=== PATIENT | female | born 1940 | race Hispanic/Latino ===

== ENCOUNTER 2018-03-05 17:12 | Emergency (ER) | payer OTHER ==
[~2018-03-05 17:12] MED LIST: AMLO-127 PO; ATOR10 PO; LEVO50 PO; METO25TA6 PO
[2018-03-05 18:05] LABS: BASOPHILS % (AUTO) 0.4 % (0.0-5.0); EOSINOPHILS % (AUTO) 2.1 % (0.0-8.0); HEMATOCRIT 39.8 % (36-48); LYMPHOCYTES % (AUTO) 25.9 % (21.0-51.0); MEAN CORPUSCULAR HEMOGLOBIN 30.6 pg (27.0-33.0); MEAN CORPUSCULAR HGB CONC 33.6 g/dL (32.0-36.0); MONOCYTES % (AUTO) 11.1 % (3.0-13.0); NEUTROPHILS % (AUTO) 60.5 % (40.0-77.0); PLATELET COUNT (AUTO) 270 K/uL (130-400); RED BLOOD CELL COUNT(AUTO) 4.37 MIL/uL (4.00-5.50); RED CELL DISTRIBUTION WIDTH 17.4 % (11.0-15.5); WHITE BLOOD COUNT (AUTO) 6.9 K/uL (4.8-10.8)
[2018-03-05 18:19] LABS: CREATININE 0.9 mg/dL (0.5-1.5); POTASSIUM 3.8 mmol/L (3.5-5.1)
[2018-03-05 18:26] LABS: ALBUMIN 3.1 g/dL (3.5-5.0); BILIRUBIN,TOTAL 0.3 mg/dL (0.2-1.0); TOTAL PROTEIN, SERUM 7.2 g/dL (6.0-8.3)
[2018-03-05 18:34] LABS: B-TYPE NATRIURETIC PEPTIDE 31 pg/mL (0-100)
[2018-03-05] MEDS ORDERED: SODIUM CHLORIDE 0.9% 1000ML 1,000 ML IV ONE (18:52)
[2018-03-05] MEDS ORDERED: ACETAMINOPHEN 325 MG TAB ONE (18:53)
== END 2018-03-05 21:02 | disposition home or self-care (01) ==
LOC: EDH 17:12
DX: R07.89 Other chest pain (principal); J10.1 Influenza due to other identified influenza virus with other respiratory manifestations; R51 Headache; R53.1 Weakness; M79.1 Myalgia; E78.5 Hyperlipidemia, unspecified; I10 Essential (primary) hypertension; E07.9 Disorder of thyroid, unspecified; Z98.890 Other specified postprocedural states
CPT/HCPCS: 36415; 71045; 80053; 82550; 83880; 84484 ×2; 85025; 87804 ×2; 93005 ×2; 99285; J7030

== ENCOUNTER → 2018-03-10 | Outpatient (CLI) | payer OTHER | END | disposition home or self-care (01) | LOC: OIH 10:23 | PROVIDERS: ATTEND Family Medicine | DX: R51 Headache (principal); R90.82 White matter disease, unspecified | CPT/HCPCS: 70450 ==

== ENCOUNTER 2019-04-28 14:56 | Emergency (ER) | payer OTHER ==
[~2019-04-28 14:56] MED LIST changes: -AMLO-127 PO; +AMLO-96 PO
[2019-04-28 15:39] LABS: BASOPHILS % (AUTO) 0.7 % (0.0-5.0); EOSINOPHILS % (AUTO) 1.2 % (0.0-8.0); LYMPHOCYTES % (AUTO) 26.2 % (21.0-51.0); MEAN CORPUSCULAR HEMOGLOBIN 32.4 pg (27.0-33.0); MEAN CORPUSCULAR HGB CONC 33.9 g/dL (32.0-36.0); MEAN CORPUSCULAR VOLUME 95.5 fL (79-99); MONOCYTES % (AUTO) 9.2 % (3.0-13.0); NEUTROPHILS % (AUTO) 62.7 % (40.0-77.0); PLATELET COUNT (AUTO) 204 K/uL (130-400); RED CELL DISTRIBUTION WIDTH 14.1 % (11.0-15.5); WHITE BLOOD COUNT (AUTO) 5.8 K/uL (4.8-10.8)
[2019-04-28 16:01] LABS: CREATININE 0.9 mg/dL (0.5-1.5); POTASSIUM 3.4 mmol/L (3.5-5.1)
[2019-04-28 16:06] LABS: ALBUMIN 3.4 g/dL (3.5-5.0); BILIRUBIN,TOTAL 0.7 mg/dL (0.2-1.0); TOTAL PROTEIN, SERUM 7.1 g/dL (6.0-8.3)
[2019-04-28] MEDS ORDERED: IOHEXOL-350 75 ML VIAL IV ONE (18:09)
== END 2019-04-28 19:13 | disposition home or self-care (01) ==
LOC: EDH 14:56
DX: I10 Essential (primary) hypertension (principal); K44.9 Diaphragmatic hernia without obstruction or gangrene; E78.5 Hyperlipidemia, unspecified; E07.9 Disorder of thyroid, unspecified; Z90.710 Acquired absence of both cervix and uterus; Z96.649 Presence of unspecified artificial hip joint
CPT/HCPCS: 36415; 71045; 71275; 80053; 83880; 84484; 85025; 85378; 93005; 99285; Q9967

== ENCOUNTER → 2019-06-06 | Outpatient (CLI) | payer OTHER | END | disposition home or self-care (01) | LOC: SHCH 13:26 | PROVIDERS: ATTEND Internal Medicine Cardiovascular Disease | DX: I06.9 Rheumatic aortic valve disease, unspecified (principal); R06.02 Shortness of breath | CPT/HCPCS: 93306 ==

== ENCOUNTER → 2019-06-08 | Outpatient (CLI) | payer OTHER ==
[~2019-06-08] VITALS: Ht 157.5 cm; Wt 83.5 kg
[~2019-06-08] MED LIST changes: +REGADENOSON 0.4 MG/5 ML PF SYG IVP SCH
== END | disposition home or self-care (01) ==
LOC: SHCH 12:00
PROVIDERS: ATTEND Internal Medicine Cardiovascular Disease
DX: R06.02 Shortness of breath (principal); R01.1 Cardiac murmur, unspecified
CPT/HCPCS: 78452; 93017; 96374; A9500 ×2; J2785

== ENCOUNTER → 2020-02-04 | Outpatient (CLI) | payer OTHER ==
[~2020-02-04] MED LIST changes: -REGADENOSON 0.4 MG/5 ML PF SYG IVP SCH
== END | disposition home or self-care (01) ==
LOC: SHCH 10:31
PROVIDERS: ATTEND Internal Medicine Cardiovascular Disease
DX: K21.9 Gastro-esophageal reflux disease without esophagitis (principal)
CPT/HCPCS: 93970

== ENCOUNTER → 2020-12-05 | Outpatient (CLI) | payer OTHER | END | disposition home or self-care (01) | LOC: SHCH 14:33 | PROVIDERS: ATTEND Internal Medicine Cardiovascular Disease | DX: R01.1 Cardiac murmur, unspecified (principal) | CPT/HCPCS: 93306; 93356 ==

== ENCOUNTER 2021-05-14 15:23 | Observation (INO) | payer OTHER ==
[~2021-05-14] VITALS: Ht 160 cm; Wt 83.0 kg
[2021-05-14 15:24] VITALS: BP 145/86
[2021-05-14 15:58] LABS: BASOPHILS % (AUTO) 0.4 % (0.0-5.0); LYMPHOCYTES % (AUTO) 22.7 % (21.0-51.0); MEAN CORPUSCULAR HEMOGLOBIN 31.1 pg (27.0-33.0); MEAN CORPUSCULAR VOLUME 97.2 fL (79-99); MONOCYTES % (AUTO) 9.1 % (3.0-13.0); NEUTROPHILS % (AUTO) 66.5 % (40.0-77.0); PLATELET COUNT (AUTO) 212 K/uL (130-400); RED BLOOD CELL COUNT(AUTO) 4.63 MIL/uL (4.00-5.50); RED CELL DISTRIBUTION WIDTH 13.7 % (11.0-15.5)
[2021-05-14 16:14] LABS: CARBON DIOXIDE 27 mmol/L (21-32); CHLORIDE 106 mmol/L (101-111); CREATININE 1.1 mg/dL (0.5-1.5); GLOMERULAR FILTR. RATE CALC 51 mL/min (>60); GLUCOSE,RANDOM 110 mg/dL (70-105); SODIUM SERUM 144 mmol/L (136-145); UREA NITROGEN, BLOOD 21 mg/dL (7-18)
[2021-05-14 16:35] LABS: ALANINE AMINOTRANSFERASE 22 U/L (12-78); ALBUMIN 3.6 g/dL (3.5-5.0); ASPARTATE AMINOTRANSFERASE 15 U/L (10-37); BILIRUBIN,TOTAL 0.6 mg/dL (0.2-1.0); CREATINE KINASE, TOTAL 153 U/L (21-232); MYOGLOBIN 86 ng/mL (10-92); TOTAL PROTEIN, SERUM 7.5 g/dL (6.0-8.3); TROPONIN I < 0.04 ng/mL (0.00-0.06)
[2021-05-14 16:43] LABS: INR 1.06 (0.85-1.15); PROTHROMBIN TIME 11.5 SEC (9.6-11.6)
[2021-05-14 18:01] VITALS: BP 105/56
[2021-05-14] MEDS ORDERED: MAG/ALUM/SIMETH 30 ML UDCUP PO PRN (18:30)
[2021-05-14] MEDS ORDERED: ACETAMINOPHEN 325 MG TAB PO PRN ×2 (18:30)
[2021-05-14] MEDS ORDERED: GUAIFENESIN-DM 200/20 MG 10 ML PO PRN (18:30)
[2021-05-14] MEDS ORDERED: HYDRALAZINE 20MG/ML VIAL IV PRN (18:30)
[2021-05-14] MEDS ORDERED: LACTULOSE 20 GM/30 ML UDCUP PO PRN (18:30)
[2021-05-14] MEDS ORDERED: NITROGLYCERIN 0.4 MG SL TAB SL PRN (18:30)
[2021-05-14] MEDS ORDERED: HYDROCODONE/ACETAMINOPHEN 5/325 MG TAB PO PRN (18:30)
[2021-05-14] MEDS: NITROGLYCERIN 1GM OINT 1 INCH/1GM TD SCH (18:30)
[2021-05-14] MEDS ORDERED: ONDANSETRON 4MG INJ IV PRN (18:30)
[2021-05-14 19:17] VITALS: BP_SYST 113; BP_SYST 123; BP_DIAS 52; BP_DIAS 58
[2021-05-14 19:39] LABS: CREATINE KINASE, TOTAL 151 U/L (21-232); MYOGLOBIN 69 ng/mL (10-92); TROPONIN I < 0.04 ng/mL (0.00-0.06)
[2021-05-14 20:05] LABS: APPEARANCE,URINE Clear (CLEAR); BILIRUBIN,URINE Negative (NEGATIVE); COLOR,URINE Yellow (YELLOW); GLUCOSE, URINE (UA) Negative (NEGATIVE); KETONES,URINE 15 mg/dL (NEGATIVE); LEUKOCYTE ESTERASE ,URINE Moderate (NEGATIVE); NITRATE,URINE Positive (NEGATIVE); OCCULT BLOOD,URINE Small (NEGATIVE); PH,URINE 6.5 (5.0-8.0); PROTEIN,URINE Negative (NEGATIVE)
[2021-05-14] MEDS ORDERED: NITR0.4T50 SL (20:07)
[2021-05-14] MEDS ORDERED: ALEN70TA80 PO (20:07)
[2021-05-14] MEDS ORDERED: LEVO88CA4 PO (20:07)
[2021-05-14] MEDS ORDERED: ESCI5TAB16 PO (20:07)
[2021-05-14 20:29] LABS: BACTERIA,URINE Many /HPF (None Seen); MUCUS,URINE Few LPF (None Seen); SQUAMOUS EPITHELIAL CELL,UR Few /HPF (0-2)
[2021-05-14] MEDS ORDERED: FAMOTIDINE 20MG TAB PO SCH (21:00)
[2021-05-14 22:26] VITALS: BP 116/63
[2021-05-15] VITALS (9 sets, daily range): BP systolic 97–138; BP diastolic 46–76
[2021-05-15] MEDS ORDERED: 0.9%NACL 100ML 100 ML ONE (00:36)
[2021-05-15] MEDS ORDERED: CEFTRIAXONE 2GM VIAL ONE (00:36)
[2021-05-15] MEDS ORDERED: CEFTRIAXONE 2GM VIAL IVP SCH (01:00)
[2021-05-15] MEDS: NITROGLYCERIN 1GM OINT 1 INCH/1GM TD SCH (03:07)
[2021-05-15 03:34] LABS: CREATINE KINASE, TOTAL 147 U/L (21-232); MYOGLOBIN 61 ng/mL (10-92); TROPONIN I < 0.04 ng/mL (0.00-0.06)
[2021-05-15] MEDS ORDERED: LEVOTHYROXINE 88 MCG TABLET PO SCH (06:57)
[2021-05-15 07:12] LABS: BASOPHILS % (AUTO) 0.5 % (0.0-5.0); EOSINOPHILS % (AUTO) 1.5 % (0.0-8.0); HEMATOCRIT 43.6 % (36-48); LYMPHOCYTES % (AUTO) 22.1 % (21.0-51.0); MEAN CORPUSCULAR HEMOGLOBIN 31.2 pg (27.0-33.0); MEAN CORPUSCULAR HGB CONC 31.9 g/dL (32.0-36.0); MEAN CORPUSCULAR VOLUME 97.8 fL (79-99); MONOCYTES % (AUTO) 10.1 % (3.0-13.0); NEUTROPHILS % (AUTO) 65.5 % (40.0-77.0); PLATELET COUNT (AUTO) 171 K/uL (130-400); RED BLOOD CELL COUNT(AUTO) 4.46 MIL/uL (4.00-5.50); RED CELL DISTRIBUTION WIDTH 13.8 % (11.0-15.5); WHITE BLOOD COUNT (AUTO) 6.1 K/uL (4.8-10.8)
[2021-05-15 07:37] LABS: CREATININE 0.7 mg/dL (0.5-1.5); POTASSIUM 4.1 mmol/L (3.5-5.1); THYROID STIMULATING HORMONE 0.29 uIU/mL (0.36-3.74)
[2021-05-15 07:38] LABS: B-TYPE NATRIURETIC PEPTIDE 124 pg/mL (0-100)
[2021-05-15] MEDS ORDERED: ENOXAPARIN SODIUM 40 MG/0.4 ML SYRINGE SQ SCH (09:00)
[2021-05-15] MEDS ORDERED: AMLODIPINE 5 MG TAB PO SCH (09:00)
[2021-05-15] MEDS ORDERED: BENAZEPRIL HCL 10 MG TABLET PO SCH (09:00)
[2021-05-15 10:36] LABS: CREATINE KINASE, TOTAL 143 U/L (21-232); MYOGLOBIN 53 ng/mL (10-92); TROPONIN I < 0.04 ng/mL (0.00-0.06)
[2021-05-15] MEDS ORDERED: BENA40TA9 PO (13:59)
[2021-05-15] MEDS ORDERED: AMOX-426 PO (13:59)
[2021-05-15] MEDS ORDERED: CITALOPRAM 20 MG TABLET PO SCH (17:00)
[2021-05-15] MEDS ORDERED: METOPROLOL TARTRATE 25 MG TAB PO SCH (21:00)
[2021-05-15] MEDS ORDERED: ATORVASTATIN 10 MG TABLET PO SCH (21:00)
== END 2021-05-15 16:07 | disposition home or self-care (01) ==
LOC: EDH 15:23 → EDHIP 18:09
PROVIDERS: ADMIT Internal Medicine; ATTEND Internal Medicine
DX: I25.118 Atherosclerotic heart disease of native coronary artery with other forms of angina pectoris (principal); I10 Essential (primary) hypertension; I42.9 Cardiomyopathy, unspecified; N39.0 Urinary tract infection, site not specified; E78.00 Pure hypercholesterolemia, unspecified; E03.9 Hypothyroidism, unspecified; E66.9 Obesity, unspecified; E78.5 Hyperlipidemia, unspecified; F32.9 Major depressive disorder, single episode, unspecified; I63.9 Cerebral infarction, unspecified; I87.2 Venous insufficiency (chronic) (peripheral); M81.0 Age-related osteoporosis without current pathological fracture; M19.90 Unspecified osteoarthritis, unspecified site; R29.700 NIHSS score 0; Z79.890 Hormone replacement therapy; Z79.899 Other long term (current) drug therapy; Z90.710 Acquired absence of both cervix and uterus; Z96.652 Presence of left artificial knee joint; Z98.890 Other specified postprocedural states; Z68.32 Body mass index [BMI] 32.0-32.9, adult
CPT/HCPCS: 36415 ×2; 71045 ×2; 80048; 80053; 81001; 82550 ×4; 83874 ×4; 83880 ×2; 84443; 84484 ×4; 85025 ×2; 85610; 87077; 87088; 87186; 93005 ×4; 96372; 99285; G0378 ×22; J0696; J1650

== ENCOUNTER → 2022-03-16 | Outpatient (CLI) | payer OTHER ==
[~2022-03-16] MED LIST changes: +ALEN70TA80 PO; -AMLO-96 PO; +AMOX-426 PO; +BENA40TA92 PO; +ESCI5TAB16 PO; -LEVO50 PO; +LEVO88CA4 PO; -METO25TA6 PO; +NITR0.4T50 SL
[2022-03-16 12:38] LABS: BASOPHILS % (AUTO) 0.8 % (0.0-5.0); EOSINOPHILS % (AUTO) 1.6 % (0.0-8.0); HEMATOCRIT 48.3 % (36-48); LYMPHOCYTES % (AUTO) 30.9 % (21.0-51.0); MEAN CORPUSCULAR HEMOGLOBIN 33.3 pg (27.0-33.0); MEAN CORPUSCULAR HGB CONC 33.5 g/dL (32.0-36.0); MEAN CORPUSCULAR VOLUME 99.4 fL (79-99); MONOCYTES % (AUTO) 9.4 % (3.0-13.0); NEUTROPHILS % (AUTO) 57.1 % (40.0-77.0); PLATELET COUNT (AUTO) 183 K/uL (130-400); RED BLOOD CELL COUNT(AUTO) 4.86 MIL/uL (4.00-5.50); RED CELL DISTRIBUTION WIDTH 14.3 % (11.0-15.5)
[2022-03-16 13:13] LABS: ALBUMIN 3.6 g/dL (3.5-5.0); BILIRUBIN,TOTAL 0.6 mg/dL (0.2-1.0); CREATININE 1.1 mg/dL (0.5-1.5); POTASSIUM 4.2 mmol/L (3.5-5.1); THYROID STIMULATING HORMONE 1.06 uIU/mL (0.36-3.74); TOTAL PROTEIN, SERUM 7.2 g/dL (6.0-8.3)
== END | disposition home or self-care (01) ==
LOC: SHCH 08:51
PROVIDERS: ATTEND Internal Medicine Cardiovascular Disease
DX: I48.0 Paroxysmal atrial fibrillation (principal)
CPT/HCPCS: 36415; 80053; 83735; 84443; 85025

== ENCOUNTER → 2023-05-25 | Outpatient (CLI) | payer OTHER | END | disposition home or self-care (01) | LOC: RESP 10:32 | PROVIDERS: ATTEND Internal Medicine Cardiovascular Disease | DX: R06.02 Shortness of breath (principal); R06.09 Other forms of dyspnea | CPT/HCPCS: 94060; 94727; 94729 ==

== ENCOUNTER → 2024-02-01 | Outpatient (CLI) | payer OTHER | END | disposition home or self-care (01) | LOC: SHCH 08:52 | PROVIDERS: ATTEND Internal Medicine Cardiovascular Disease | DX: I08.2 Rheumatic disorders of both aortic and tricuspid valves (principal) | CPT/HCPCS: 93306 ==

== ENCOUNTER 2024-05-03 06:00 | Day surgery (SDC) | payer OTHER ==
[2024-04-27 10:00] VITALS: BP 127/77; PULSE 61; RESP 17
[2024-04-27 10:13] LABS: BASOPHILS # (AUTO) 0.04 K/uL (0.00-0.20); BASOPHILS % (AUTO) 0.8 % (0.0-5.0); EOSINOPHILS # (AUTO) 0.08 K/uL (0.00-0.70); EOSINOPHILS % (AUTO) 1.5 % (0.0-8.0); HEMATOCRIT 45.4 % (36-48); IMMATURE GRANULOCYTE ABSOLUTE 0.02 K/uL (0-1); LYMPHOCYTES # (AUTO) 1.1 K/uL (1.0-4.8); LYMPHOCYTES % (AUTO) 21.9 % (21.0-51.0); MEAN CORPUSCULAR HEMOGLOBIN 31.7 pg (27.0-33.0); MEAN CORPUSCULAR HGB CONC 31.9 g/dL (32.0-36.0); MEAN CORPUSCULAR VOLUME 99.3 fL (79-99); MONOCYTES # (AUTO) 0.6 K/uL (0.1-1.0); MONOCYTES % (AUTO) 10.6 % (3.0-13.0); NEUTROPHILS # (AUTO) 3.4 K/uL (1.8-7.7); NEUTROPHILS % (AUTO) 64.8 % (40.0-77.0); PLATELET COUNT (AUTO) 223 K/uL (130-400); RED BLOOD CELL COUNT(AUTO) 4.57 MIL/uL (4.00-5.50); RED CELL DISTRIBUTION WIDTH 14.6 % (11.0-15.5); WHITE BLOOD COUNT (AUTO) 5.2 K/uL (4.8-10.8)
[2024-04-27 10:20] LABS: CREATININE 1.1 mg/dL (0.5-1.0)
[2024-04-27 10:24] LABS: INR 1.06 (0.85-1.15); PROTHROMBIN TIME 11.4 SEC (9.6-11.6)
[2024-04-27 10:25] LABS: PARTIAL THROMBOPLASTIN TIME 28.1 SEC (26.3-35.5)
[2024-05-03] VITALS (8 sets, daily range): BP systolic 102–139; BP diastolic 51–74; PULSE 52–114; RESP 14–16
[~2024-05-03] VITALS: Ht 157.5 cm; Wt 77.5 kg
[~2024-05-03 06:00] MED LIST changes: +AEC81 PO; +AMIO100T4 PO; -AMOX-426 PO; +APIX5TAB PO; +BENA-8 PO; -BENA40TA92 PO; +DILT90CA PO; -ESCI5TAB16 PO; -NITR0.4T50 SL
[2024-05-03] MEDS: 0.9%NACL 1000ML 1,000 ML IV ONE (06:58)
[2024-05-03] MEDS ORDERED: HEPARIN 10,000 UNIT/10ML (1,000 UNIT/ML) VIAL ONE (07:45)
[2024-05-03] MEDS ORDERED: MIDAZOLAM HCL 1 MG/ML 2ML VIAL ONE ×3 (07:45→08:59)
[2024-05-03] MEDS ORDERED: MEPERIDINE-PF 25 MG/ML SYG ONE ×3 (07:45→08:59)
[2024-05-03] MEDS ORDERED: LIDOCAINE HCL 400MG/20ML VIAL ONE (07:46)
== END 2024-05-03 12:45 | disposition home or self-care (01) ==
LOC: DAH 06:00
PROVIDERS: ATTEND Internal Medicine Cardiovascular Disease
DX: I48.3 Typical atrial flutter (principal); I10 Essential (primary) hypertension; I48.0 Paroxysmal atrial fibrillation; I35.0 Nonrheumatic aortic (valve) stenosis; R55 Syncope and collapse; E78.5 Hyperlipidemia, unspecified; E03.9 Hypothyroidism, unspecified; E66.9 Obesity, unspecified; M81.0 Age-related osteoporosis without current pathological fracture; M19.90 Unspecified osteoarthritis, unspecified site; F32.A Depression, unspecified; Z68.31 Body mass index [BMI] 31.0-31.9, adult; Z96.652 Presence of left artificial knee joint; Z79.82 Long term (current) use of aspirin; Z90.710 Acquired absence of both cervix and uterus; Z79.01 Long term (current) use of anticoagulants; Z79.899 Other long term (current) drug therapy
CPT/HCPCS: 80048; 85025; 85610; 85730; 36415; 93005; 93653; C1894 ×2; C1732 ×2; A4649 ×2; J3490; J7030; J1644 ×2; J2250 ×3; J2175 ×3; A4215; A4222; A4221; A4663; A4216; A4606; A4223 ×3; 99156; 99157

== ENCOUNTER 2024-06-04 05:55 | Observation (INO) | payer OTHER ==
[2024-06-01 09:50] LABS: BASOPHILS # (AUTO) 0.03 K/uL (0.00-0.20); BASOPHILS % (AUTO) 0.6 % (0.0-5.0); EOSINOPHILS # (AUTO) 0.06 K/uL (0.00-0.70); EOSINOPHILS % (AUTO) 1.2 % (0.0-8.0); HEMATOCRIT 45.7 % (36-48); IMMATURE GRANULOCYTE ABSOLUTE 0.03 K/uL (0-1); LYMPHOCYTES # (AUTO) 1.2 K/uL (1.0-4.8); LYMPHOCYTES % (AUTO) 24.3 % (21.0-51.0); MEAN CORPUSCULAR HEMOGLOBIN 32.8 pg (27.0-33.0); MEAN CORPUSCULAR HGB CONC 32.8 g/dL (32.0-36.0); MEAN CORPUSCULAR VOLUME 99.8 fL (79-99); MONOCYTES # (AUTO) 0.5 K/uL (0.1-1.0); MONOCYTES % (AUTO) 9.4 % (3.0-13.0); NEUTROPHILS # (AUTO) 3.1 K/uL (1.8-7.7); NEUTROPHILS % (AUTO) 63.9 % (40.0-77.0); PLATELET COUNT (AUTO) 180 K/uL (130-400); RED BLOOD CELL COUNT(AUTO) 4.58 MIL/uL (4.00-5.50); RED CELL DISTRIBUTION WIDTH 13.8 % (11.0-15.5); WHITE BLOOD COUNT (AUTO) 4.9 K/uL (4.8-10.8)
[2024-06-01 10:00] LABS: CREATININE 1.2 mg/dL (0.5-1.0); POTASSIUM 4.2 mmol/L (3.5-5.1)
[2024-06-01 10:02] LABS: INR 1.06 (0.85-1.15); PROTHROMBIN TIME 11.4 SEC (9.6-11.6)
[2024-06-01 10:03] LABS: PARTIAL THROMBOPLASTIN TIME 30.2 SEC (26.3-35.5)
[2024-06-01 10:11] VITALS: BP 175/86; PULSE 62; RESP 18
[~2024-06-04] VITALS: Ht 154.9 cm; Wt 78.0 kg
[2024-06-04] VITALS (33 sets, daily range): BP systolic 89–137; BP diastolic 42–75; PULSE 20–83; RESP 11–24; O2SAT 96–98
[~2024-06-04 05:55] MED LIST changes: -AMIO100T4 PO; +AMIO200T68 PO; -BENA-8 PO; +BENA40TA92 PO
[2024-06-04] MEDS: 0.9%NACL 1000ML 1,000 ML IV ONE (06:33)
[2024-06-04] MEDS ORDERED: LIDOCAINE HCL 400MG/20ML VIAL ONE (07:13)
[2024-06-04] MEDS ORDERED: IOHEXOL 350 MG/ML 100ML INFUS..BTL IV ONE (07:13)
[2024-06-04] MEDS ORDERED: HEParin-NS 1,000 UNIT/500 ML 1,000 ML IV ONE (07:14)
[2024-06-04] MEDS ORDERED: NITROGLYCERIN 50MG VIAL ONE (07:14)
[2024-06-04] MEDS ORDERED: MIDAZOLAM HCL 1 MG/ML 2ML VIAL ONE (07:33)
[2024-06-04] MEDS ORDERED: FENTanyl CITRate PF 50 MCG/1 ML 2ML VIAL ONE (07:33)
[2024-06-04] MEDS ORDERED: BIVALIRUDIN 250 MG/VIAL IV ONE (07:35)
[2024-06-04] MEDS ORDERED: HEParin 10,000 UNIT/10ML (1,000 UNIT/ML) VIAL ONE (07:35)
[2024-06-04] MEDS ORDERED: CLOPIDOGREL 300MG TAB ONE (09:05)
[2024-06-04] MEDS ORDERED: ASPIRIN 81MG CHEW TAB ONE (09:05)
[2024-06-04] MEDS ORDERED: GLUCAGON 1MG KIT 1 MG ML IM PRN (09:30)
[2024-06-04] MEDS ORDERED: DEXTROSE 50%-WATER 50 ML DISP.SYRIN IV PRN (09:30)
[2024-06-04] MEDS ORDERED: METOPROLOL TARTRATE 1 MG/ML 5ML VIAL IV PRN (09:30)
[2024-06-04] MEDS ORDERED: NITROGLYCERIN 0.4 MG SL TAB SL PRN (09:30)
[2024-06-04] MEDS ORDERED: acetaMINOPHEN 650 MG SUPPOSITORY RC PRN (17:00)
[2024-06-04] MEDS ORDERED: doCUSate SODIUM 100 MG CAP PO PRN (17:00)
[2024-06-04] MEDS ORDERED: LABETALOL 20MG SYG IV PRN (17:00)
[2024-06-04] MEDS ORDERED: cloNIDine HCL 0.1 MG TABLET PO PRN (17:00)
[2024-06-04] MEDS ORDERED: LACTULOSE 20 GM/30 ML UDCUP PO PRN (17:00)
[2024-06-04] MEDS ORDERED: hydrALAZine 20MG/ML VIAL IV PRN (17:00)
[2024-06-04] MEDS: ONDANSETRON 4MG INJ IVP PRN (17:36)
[2024-06-04] MEDS: acetaMINOPHEN 325 MG TAB PO PRN (17:36)
[2024-06-04] MEDS: ATORVASTATIN 10 MG TABLET PO SCH (20:25)
[2024-06-04] MEDS: DILTIAZEM 90 MG PO SCH (20:25)
[2024-06-04] MEDS: APIXaban 5 MG TABLET PO SCH (20:25)
[2024-06-04] MEDS: 0.9%NACL 1000ML 1,000 ML IV SCH (20:26)
[2024-06-05 03:49] LABS: BASOPHILS # (AUTO) 0.02 K/uL (0.00-0.20); BASOPHILS % (AUTO) 0.3 % (0.0-5.0); EOSINOPHILS # (AUTO) 0.02 K/uL (0.00-0.70); EOSINOPHILS % (AUTO) 0.3 % (0.0-8.0); HEMATOCRIT 35.6 % (36-48); IMMATURE GRANULOCYTE ABSOLUTE 0.03 K/uL (0-1); LYMPHOCYTES % (AUTO) 12.3 % (21.0-51.0); MEAN CORPUSCULAR HEMOGLOBIN 32.3 pg (27.0-33.0); MEAN CORPUSCULAR HGB CONC 32.9 g/dL (32.0-36.0); MEAN CORPUSCULAR VOLUME 98.3 fL (79-99); MONOCYTES # (AUTO) 0.7 K/uL (0.1-1.0); MONOCYTES % (AUTO) 8.7 % (3.0-13.0); PLATELET COUNT (AUTO) 161 K/uL (130-400); RED BLOOD CELL COUNT(AUTO) 3.62 MIL/uL (4.00-5.50); WHITE BLOOD COUNT (AUTO) 7.7 K/uL (4.8-10.8)
[2024-06-05 04:04] LABS: MAGNESIUM 1.9 mg/dL (1.80-2.40); PHOSPHORUS 4.7 mg/dL (2.5-4.9)
[2024-06-05 04:17] VITALS: BP 103/68; PULSE 58; RESP 18
[2024-06-05] MEDS: LEVOTHYROXINE 88 MCG TABLET PO SCH (05:38)
[2024-06-05 08:00] VITALS: O2SAT 97
[2024-06-05 08:56] VITALS: BP 112/64; PULSE 66; RESP 18
[2024-06-05] MEDS: AMIOdarone 200 MG TABLET PO SCH (09:13)
[2024-06-05] MEDS: beNAZEPril HCL 10 MG TABLET PO SCH (09:13)
[2024-06-05] MEDS: 0.9%NACL 1000ML 1,000 ML IV SCH (09:13)
[2024-06-05] MEDS: CLOPIDOGREL 75MG TAB PO SCH (09:13)
[2024-06-05] MEDS: PANTOPRAZOLE 40 MG TAB DR PO SCH (09:13)
[2024-06-05] MEDS: ASPIRIN 81 MG EC TAB PO SCH (09:13)
[2024-06-05] MEDS: ATROPINE 1MG SYG IVP ONE (09:14)
[2024-06-05 12:33] VITALS: BP 106/62; PULSE 58; RESP 18
[2024-06-05] MEDS ORDERED: CLOP-31 PO (18:07)
[2024-06-05 19:33] VITALS: BP 124/37; PULSE 62; RESP 18
[2024-06-05] MEDS ORDERED: ATORVASTATIN 20 MG TABLET PO SCH (21:00)
[2024-06-11] MEDS ORDERED: ALENDRONATE SODIUM 35 MG TAB PO SCH (06:30)
== END 2024-06-05 19:55 | disposition home or self-care (01) ==
LOC: DAH 05:55 → DAHIP 05:56 → 2DH 15:30
PROVIDERS: ADMIT Internal Medicine; ATTEND Internal Medicine
DX: I25.119 Atherosclerotic heart disease of native coronary artery with unspecified angina pectoris (principal); I35.0 Nonrheumatic aortic (valve) stenosis; E78.5 Hyperlipidemia, unspecified; E03.9 Hypothyroidism, unspecified; F32.A Depression, unspecified; I48.0 Paroxysmal atrial fibrillation; I95.9 Hypotension, unspecified; I48.3 Typical atrial flutter; I27.20 Pulmonary hypertension, unspecified; I10 Essential (primary) hypertension; E66.9 Obesity, unspecified; M81.0 Age-related osteoporosis without current pathological fracture; M19.90 Unspecified osteoarthritis, unspecified site; Z68.32 Body mass index [BMI] 32.0-32.9, adult; Z79.02 Long term (current) use of antithrombotics/antiplatelets; Z98.61 Coronary angioplasty status; Z90.710 Acquired absence of both cervix and uterus
CPT/HCPCS: 80048 ×2; 85025 ×2; 85610; 85730; 36415 ×2; 71045 ×2; 93005; 93460; 96374; 96361; 83735; 84100; C1769 ×2; C1887 ×2; C1894 ×3; C1725 ×2; C1874 ×2; Q9965 ×2; G0378 ×27; J3010; J3490 ×2; J7030; J1644 ×2; J2250; J2405; J0583; Q9967; A4615; A4215; A4223 ×3; A6402; A4657; A4222; A4221; A4663; A4216; A6258; A4606; C9600; 96360; 99156; 99157; J0461

== ENCOUNTER 2024-12-07 08:22 | Day surgery (SDC) | payer OTHER ==
[2024-12-05 12:16] LABS: BASOPHILS # (AUTO) 0.03 K/uL (0.00-0.20); BASOPHILS % (AUTO) 0.7 % (0.0-5.0); EOSINOPHILS # (AUTO) 0.05 K/uL (0.00-0.70); EOSINOPHILS % (AUTO) 1.2 % (0.0-8.0); HEMATOCRIT 43.9 % (36-48); IMMATURE GRANULOCYTE ABSOLUTE 0.01 K/uL (0-1); LYMPHOCYTES # (AUTO) 1.2 K/uL (1.0-4.8); LYMPHOCYTES % (AUTO) 27.6 % (21.0-51.0); MEAN CORPUSCULAR HEMOGLOBIN 32.2 pg (27.0-33.0); MEAN CORPUSCULAR HGB CONC 31.9 g/dL (32.0-36.0); MEAN CORPUSCULAR VOLUME 100.9 fL (79-99); MONOCYTES # (AUTO) 0.4 K/uL (0.1-1.0); MONOCYTES % (AUTO) 9.5 % (3.0-13.0); NEUTROPHILS # (AUTO) 2.6 K/uL (1.8-7.7); NEUTROPHILS % (AUTO) 60.8 % (40.0-77.0); PLATELET COUNT (AUTO) 195 K/uL (130-400); RED BLOOD CELL COUNT(AUTO) 4.35 MIL/uL (4.00-5.50); RED CELL DISTRIBUTION WIDTH 14.7 % (11.0-15.5); WHITE BLOOD COUNT (AUTO) 4.2 K/uL (4.8-10.8)
[2024-12-05 12:18] VITALS: BP 132/68; PULSE 64; RESP 13; TEMP 97.4
[2024-12-05 12:27] LABS: POTASSIUM 3.9 mmol/L (3.5-5.1)
--- NOTE | 2024-12-05 12:45 | EKG ---
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
[~2024-12-07] VITALS: Ht 165.1 cm; Wt 76.4 kg
[~2024-12-07 08:22] MED LIST changes: -AEC81 PO; -AMIO200T68 PO; +CLOP75TA32 PO; -DILT90CA PO; +ISOS30TA92 PO
[2024-12-07 08:24] VITALS: BP 190/98; PULSE 75; RESP 16; TEMP 97.4
[2024-12-07 08:40] VITALS: BP 117/73
[2024-12-07] MEDS: 0.9%NACL 1000ML 1,000 ML IV SCH (08:55)
[2024-12-07] MEDS ORDERED: HEParin-NS 1,000 UNIT/500 ML 500 ML IV ONE (09:43)
[2024-12-07] MEDS ORDERED: LIDOCAINE HCL 400MG/20ML VIAL ONE (09:43)
[2024-12-07] MEDS ORDERED: MEPERIDINE-PF 50 MG/ML SYG ONE (10:09)
[2024-12-07] MEDS ORDERED: MIDAZOLAM HCL 1 MG/ML 2ML VIAL ONE (10:10)
[2024-12-07 11:00] VITALS: BP 116/74; PULSE 61; RESP 10; TEMP 97.8
[2024-12-07] MEDS ORDERED: acetaMINOPHEN 500 MG TABLET PO PRN (11:00)
[2024-12-07] MEDS ORDERED: acetaMINOPHEN WITH coDEINE 1 TAB TAB PO PRN ×2 (11:00)
--- NOTE | 2024-12-07 11:00 | NUR ---
DRESSING DRESSING TO LEFT MID CHEST. DRY AND INTACT NO REDNESS OR SWELLING.
[2024-12-07 11:15] VITALS: BP 134/79; PULSE 62; RESP 13
--- NOTE | 2024-12-07 11:15 | NUR ---
DRESSING DRESSING TO LEFT MID CHEST. DRESSING DRY AND INTACT NO REDNESS, OR SWELLING NOTED. NO ACTIVE BLEEDING.
[2024-12-07 11:30] VITALS: BP 140/80; PULSE 64; RESP 12; TEMP 97.8
--- NOTE | 2024-12-07 11:30 | NUR ---
DRESSING DRESSING TO LEFT MID CHEST. DRESSING DRY AND INTACT. NO REDNESS OR SWELLING. NO ACTIVE BLEEDING NOTED.
== END 2024-12-07 11:38 | disposition home or self-care (01) ==
LOC: DAH 08:22
PROVIDERS: ATTEND Internal Medicine Cardiovascular Disease
DX: R55 Syncope and collapse (principal); I48.0 Paroxysmal atrial fibrillation; R00.1 Bradycardia, unspecified; I35.0 Nonrheumatic aortic (valve) stenosis; I25.10 Atherosclerotic heart disease of native coronary artery without angina pectoris; I10 Essential (primary) hypertension; E78.5 Hyperlipidemia, unspecified; E03.9 Hypothyroidism, unspecified; E66.9 Obesity, unspecified; M19.90 Unspecified osteoarthritis, unspecified site; F32.A Depression, unspecified; Z85.118 Personal history of other malignant neoplasm of bronchus and lung; Z96.652 Presence of left artificial knee joint; Z90.710 Acquired absence of both cervix and uterus; Z79.899 Other long term (current) drug therapy
CPT/HCPCS: 80048; 85025; 36415; 93005; 33285; A4649; C1764; J3490; J7030; J2250; J2175; J1644; A4215; A4222; A4221; A4663; A4216; A4606; A4223 ×3

== ENCOUNTER → 2025-07-19 | Emergency (ER) | payer OTHER ==
[~2025-07-19] VITALS: Ht 162.6 cm; Wt 66.2 kg
[~2025-07-19] MED LIST changes: -LEVO88CA4 PO; +LEVO88CA5 PO
--- NOTE | 2025-07-19 19:23 | NUR ---
PT CARE ASSUMED AT THIS TIME
--- NOTE | 2025-07-19 19:34 | ERN ---
General Chief Complaint: Chest Pain Stated Complaint: CHEST TIGHTNESS Time Seen by MD: 19:18 History of Present Illness Initial Comments Patient comes in with chest tightness and chest pain. She describes it as the pain you get when you are trying to swallow something but it gets stuck in your throat or esophagus. She points to her xiphoid process as the area of the pain. She comes in because she is concerned that she is having a problem with her heart. Below is a summary of her last admission here when she had some stents placed in her LAD. Lsfpdjgk-sb-pgrreb aortic stenosis Acute Angina CAD s/p Angioplasty and stent placement to mid distal left anterior descending artery with placement of a 2.75 mm x 30 mm joseluis Kenton stent deployed to 2.7 by mm and angioplasty and stent placement to proximal mid LAD with placement of a 3 mm x 18 mm joseluis Kenton stent deployed to 3.10 mm 06/04/[address] Chester Lackey Hypertension Left ventricular ejection fraction 60 65% per echocardiogram 02/01/24 Pulmonary hypertension RVSP 35.4 mmHg per echocardiogram 02/01/2024 Eead-tg-eppejdse concentric left ventricle hypertrophy, Highest mean aortic valve gradient is 31mmHg. Per echocardiogram 02/01/2024 Peak aortic valve gradient is 53mmHg. Per echocardiogram 02/01/2024 Calculated MICAELA by the continuity equation is 0.8cm2. is severe valvular aortic stenosis. 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 Rosenthal Obesity class one BMI 32.5 HPI: This is an 84-year-old female coming in for elective left heart catheterization with TAVR protocol by Dr. Lackey with past medical history significant for moderate to severe aortic stenosis angina CAD hypertension dyslipidemia AFib on chronic Eliquis obesity hypothyroidism osteoporosis osteoarthritis depression, we will be admitted overnight for observation. At time of visit patient denies any chest pain or shortness of breath. Patient denies any nausea vomiting or abdominal pain. Patient is currently on room air appears to be tolerating well. Patient to be admitted on PCCU, we will resume patient's home medications. Patient to have gentle IV hydration. Spoke with Jerzy HERNANDEZ for Dr. Lackey, in regards to patient's antiplatelet therapy medication voiced patient should be on [id number] mg daily, Eliquis5 mg b.i.d., Mjsmrr22 mg daily, for 30 days then asp irin will be discontinued and patient will continue on Plavix and Eliquis. We will continue to monitor via telemetry. We will continue to follow recommendations from Cardiology. Plan summary Admit to PCCU Vital signs per protocol Continue telemetry Continue follow recommendations of Cardiology Spoke with Jerzy HERNANDEZ for Dr. Lackey, in regards to patient's antiplatelet therapy medication voiced patient should be on rfmzagg66 mg daily, Eliquis5 mg b.i.d., Wtchpr97 mg daily, for 30 days then aspirin will be discontinued and patient will continue on Plavix and Eliquis. Continue amiodarone 100 mg q.a.m. Continue benazepril 20 mg q.a.m. Continue Cardizem 90 mg b.i.d. Continue atorvastatin 20 mg q.h.s. Continue Altkspbfq65 mcg daily Timing/Duration: 4-6 hours Allergies: Coded Allergies: No Known Drug Allergies (Unverified Allergy, Unknown, 09/25/17) Home Meds Reported Medications Alendronate Sodium (Alendronate Sodium) 70 Mg Tablet, 70 MG PO QWEEK, TAB 12/05/24 Clopidogrel Bisulfate (Clopidogrel) 75 Mg Tablet, 75 MG PO DAILY, TAB 12/05/24 Isosorbide Mononitrate (Isosorbide Mononitrate ER) 30 Mg Tab.er.24h, 30 MG PO DAILY, TAB 12/05/24 Benazepril HCl (Benazepril HCl) 40 Mg Tablet, 40 MG PO AM, TAB 06/01/24 Apixaban (Eliquis) 5 Mg Tablet, 5 MG PO BID, TAB RESUME ELIQUIS ON TUESDAY PM 04/27/24 Levothyroxine Sodium (Levothyroxine) 88 Mcg Capsule, 88 MCG PO DAILY, CAP 05/14/21 Atorvastatin Calcium (LIPITOR) 20 Mg Tab, 20 MG PO HS, TAB 09/25/17 Past Medical History Past Medical History: A-Fib, CAD, High Cholesterol, Hypertension Medical History Other: THYROID Past Surgical History: Other Surgical History Other: BACK, KNEE, Cardiac STENTS LAD Social History Social History: Negative, Lives with family Constitutional: (-) chills, (-) diaphoresis, (-) fever, (-) malaise, (-) weakness, (-) other documentation EENTM: (-) eye pain, (-) blurred vision, (-) tearing, (-) double vision, (-) ear pain, (-) ear discharge, (-) nose pain, (-) nose congestion, (-) throat pain, (-) Throat swelling, (-) mouth pain, (-) tooth pain, (-) mouth swelling, (-) other documentation Respiratory: (-) cough, (-) orthopnea, (-) short of breath, (-) stridor, (-) wheezing, (-) other documentation Cardiovascular: (+) chest pain Gastrointestinal/Abdominal: (+) nausea Genitourinary: (-) vaginal discharge, (-) vaginal bleeding, (-) dysuria, (-) frequency, (-) hematuria, (-) pain, (-) other documentation Musculoskeletal: (-) Neck pain, (-) back pain, (-) Flank Pain, (-) joint pain, (-) joint swelling, (-) muscle pain, (-) muscle stiffness, (-) gout, (-) other documentation Skin: (-) laceration, (-) contusion, (-) abrasion, (-) abscess, (-) rash, (-) change in color, (-) change in hair, (-) change in nails, (-) diaphoresis, (-) dryness, (-) other documentation Physical Exam General Appearance: (+) no apparent distress Orientation: (+) alert, (+) oriented x 3 Head/Face Trauma: No Eye: bilateral eye normal inspection, bilateral eye PERRL, bilateral eye EOMI Ear, Nose, Throat: (+) hearing grossly normal, (+) normal ENT inspection, (+) moist mucous membraine Neck: (+) normal inspection, (+) supple, (+) full range of motion, (+) no JVD Respiratory: (+) chest non-tender, (+) lungs clear, (+) well ventilated Heart: (+) regular, (+) no gallop, (+) systolic murmur Vascular: (+) no edema, (+) normal peripheral pulse Gastrointestinal: (+) soft, (+) non-tender, (+) bowel sound present Neurologic/Psychiatric: (+) normal speech, (+) no motor defecits Results Laboratory and Microbiology Lab and Micro Result Laboratory Tests Test 07/19/25 19:34 White Blood Count 4.9 K/uL (4.8-10.8) Red Blood Count 4.41 MIL/uL (4.00-5.50) Hemoglobin 14.1 g/dL (12.0-16.0) Hematocrit 43.0 % (36-48) Mean Corpuscular Volume 97.5 fL (79-99) Mean Corpuscular Hemoglobin 32.0 pg (27.0-33.0) Mean Corpuscular Hemoglobin Concent 32.8 g/dL (32.0-36.0) Red Cell Distribution Width 13.1 % (11.0-15.5) Platelet Count 219 K/uL (130-400) Mean Platelet Volume 10.3 fL (7.5-10.5) Immature Granulocyte % (Auto) 0.2 % (0-1) Neutrophils (%) (Auto) 66.2 % (40.0-77.0) Lymphocytes (%) (Auto) 19.2 % (21.0-51.0) L Monocytes (%) (Auto) 12.8 % (3.0-13.0) Eosinophils (%) (Auto) 1.2 % (0.0-8.0) Basophils (%) (Auto) 0.4 % (0.0-5.0) Neutrophils # (Auto) 3.3 K/uL (1.8-7.7) Lymphocytes # (Auto) 1.0 K/uL (1.0-4.8) Monocytes # (Auto) 0.6 K/uL (0.1-1.0) Eosinophils # (Auto) 0.06 K/uL (0.00-0.70) Basophils # (Auto) 0.02 K/uL (0.00-0.20) Absolute Immature Granulocyte (auto 0.01 K/uL (0-1) Nucleated Red Blood Cells 0.0 % (0.0-0.19) Sodium Level 143 mmol/L (136-145) Potassium Level 4.0 mmol/L (3.5-5.1) Chloride Level 107 mmol/L (101-111) Carbon Dioxide Level 26 mmol/L (21-32) Blood Urea Nitrogen 19 mg/dL (7-18) H Creatinine 0.9 mg/dL (0.5-1.0) Glomerular Filtration Rate Calc 62 mL/min (>90) Random Glucose 185 mg/dL (70-105) H Total Calcium 8.4 mg/dL (8.5-10.1) L Total Bilirubin 0.5 mg/dL (0.2-1.0) Aspartate Amino Transf (AST/SGOT) 17 U/L (10-37) Alanine Aminotransferase (ALT/SGPT) 7 U/L (12-78) L Alkaline Phosphatase 68 U/L (50-136) Troponin I High Sensitivity 7 ng/L (4-50) B-Type Natriuretic Peptide 77 pg/mL (0-100) Total Protein 6.1 g/dL (6.0-8.3) Albumin 2.8 g/dL (3.5-5.0) L EKG/XRAY/US/CT/MRI EKG: (+) NSR (atrial premature complex), (+) ST elevation (non-specific from LVH, Left [place] enlargement) MDM MDM: Differential diagnosis: Esophageal spasm, dysmotility of the esophagus, acute MO, GERD, pneumonia Rationale: Tests considered and ordered secondary to shared decision making include: Previous outside records reviewed: Old ER visits. Risk of complication and/or morbidity or mortality of patient management: None Medications-Per medication reconciliation Need for hospitalization: Patient does meet criteria for hospitalization. Need for emergency major/minor surgery: No There are no social concerns with this patient. Prescription drug management Prescriptions will include symptomatic care Patient's prior external medical records from other ER visits were reviewed by me as indicated. Prior testing and results from previous visits were reviewed. Prior tests were taken into account with medical decision making and resource utilization, independent historian/historians were used to obtain complete [facility] history. I independently interpreted the test that were performed, results were reviewed by me and considered findings on radiology if ordered. Patient's CBC is normal CBC is normal. Patient's chemistry panel is also normal except for a high glucose to 185. Her albumin is 2.8 her calcium is 8.4. Her BNP and her troponin are normal. Patient's symptoms were consistent with an esophageal problem and I put that on my differential. Her chest x-ray shows a large hiatal hernia. I believe her symptoms are from her hiatal hernia and not from any cardiac source and she can be discharged from the hospital. ED Course Orders Procedure Category Date Status Time 12 Lead Ekg Tracing- EKG 07/19/25 Logged Technical 19:23 B-Type Natriuretic LAB 07/19/25 Complete Peptide 19:25 Comprehensive LAB 07/19/25 Complete Metabolic Panel 19:25 Cbc With Differential LAB 07/19/25 Complete 19:25 Troponin I High LAB 07/19/25 Complete Sensitivity 19:25 Chest 1vw RAD 07/19/25 Resulted 19:25 Vital Signs Date Time Temp Pulse Resp B/P (MAP) Pulse Ox O2 Delivery O2 Flow Rate FiO2 07/19/25 19:36 98.4 83 16 120/73 96 Room Air* 0 21 07/19/25 19:17 98.4 85 20 111/71 95 Room Air 0 DX & DISP Disposition: Discharge Departure Impression: Primary Impression: Hiatal hernia Condition: Stable Additional Instructions: Your symptoms describe difficulty swallowing with the food feeling like it is getting stuck in the lower part of your esophagus. The chest x-ray showed a hiatal hernia which is at a portion of your stomach inside your chest. This is not a surgical emergency but you should bring it to the attention of your primary care physician. We tested your cardiac enzymes and EKG and they were all normal. Your symptoms are coming from your esophagus and not your heart. To help I recommend you chew food thoroughly and take only small bites of food when you eat. Sometimes a hiatal hernia can cause heartburn. This can be treated with Pepcid or other antacid medications. Again please discuss this with your primary care physician. Referrals: YONG HAMMOND MD (PCP) BRUNO HUDDLESTON MD Jul 19, 2025 19:34
[2025-07-19 19:36] VITALS: BP 120/73; PULSE 83; RESP 16; TEMP 98.4; O2SAT 96
[2025-07-19 19:51] LABS: IMMATURE GRANULOCYTE ABSOLUTE 0.01 K/uL (0-1); NUCLEATED RED BLOOD CELLS 0.0 % (0.0-0.19); PLATELET COUNT (AUTO) 219 K/uL (130-400); RED BLOOD CELL COUNT(AUTO) 4.41 MIL/uL (4.00-5.50); RED CELL DISTRIBUTION WIDTH 13.1 % (11.0-15.5); WHITE BLOOD COUNT (AUTO) 4.9 K/uL (4.8-10.8)
[2025-07-19 19:56] LABS: CREATININE 0.9 mg/dL (0.5-1.0); GLOMERULAR FILTR. RATE CALC 62.0 mL/min (>90); GLUCOSE,RANDOM 185.0 mg/dL (70-105); SODIUM SERUM 143.0 mmol/L (136-145); UREA NITROGEN, BLOOD 19.0 mg/dL (7-18)
[2025-07-19 20:05] LABS: ASPARTATE AMINOTRANSFERASE 17.0 U/L (10-37); TOTAL PROTEIN, SERUM 6.1 g/dL (6.0-8.3)
--- NOTE | 2025-07-19 20:06 | HMCIMG ---
EXAM: CR Chest, 1 View. CLINICAL HISTORY: chest tightness COMPARISON: None provided. FINDINGS: LUNGS: The lungs show no infiltrate or other acute finding. PLEURAL SPACES: No evidence of pleural effusion or pneumothorax. MEDIASTINUM: Cardiac size and mediastinal contours within normal limits. Large hiatal hernia BONES: No acute osseous abnormality. IMPRESSION: No acute cardiopulmonary pathology is evident. /[place]
--- NOTE | 2025-07-20 01:20 | EKG ---
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
== END ==
LOC: EDH 19:14
DX: K44.9 Diaphragmatic hernia without obstruction or gangrene (principal); E03.9 Hypothyroidism, unspecified; E78.00 Pure hypercholesterolemia, unspecified; F32.A Depression, unspecified; I25.119 Atherosclerotic heart disease of native coronary artery with unspecified angina pectoris; M19.90 Unspecified osteoarthritis, unspecified site; E66.9 Obesity, unspecified; I48.20 Chronic atrial fibrillation, unspecified; Z79.01 Long term (current) use of anticoagulants; Z79.02 Long term (current) use of antithrombotics/antiplatelets; Z79.890 Hormone replacement therapy; Z79.899 Other long term (current) drug therapy; Z95.5 Presence of coronary angioplasty implant and graft; Z68.32 Body mass index [BMI] 32.0-32.9, adult
CPT/HCPCS: 36415; 71045; 80053; 83880; 84484; 85025; 93005; 99285

== ENCOUNTER 2025-09-01 02:22 | Observation (INO) | payer OTHER ==
[~2025-09-01] VITALS: Ht 152.4 cm; Wt 75.0 kg
--- NOTE | 2025-09-01 02:31 | NUR ---
PT CARE ASSUMED AT THIS TIME
--- NOTE | 2025-09-01 02:43 | ERN ---
General Chief Complaint: Chest Pain Stated Complaint: CHEST PAIN THAT HAS RESOLVED Time Seen by MD: 02:28 Source: patient, EMS History of Present Illness Initial Comments The patient is an 85-year-old female with a past medical history of atrial fibrillation on Eliquis being brought in by EMS for evaluation of chest pain that started 1 hour prior to arrival. Patient states the chest pain woke her up. She reports taking three nitroglycerin pills with resolution of her symptoms. On arrival with the patient has no complaints. Past medical history: Tdkvqtkb-ag-gzpxnm aortic stenosis Acute Angina CAD s/p Angioplasty and stent placement to mid distal left anterior descending artery with placement of a 2.75 mm x 30 mm joseluis [place] stent deployed to 2.7 by mm and angioplasty and stent placement to proximal mid LAD with placement of a 3 mm x 18 mm joseluis Venetie stent deployed to 3.10 mm 06/04/[address] Chester Lackey Hypertension Left ventricular ejection fraction 60 65% per echocardiogram 02/01/24 Pulmonary hypertension RVSP 35.4 mmHg per echocardiogram 02/01/2024 Habm-bf-rzdokzsf concentric left ventricle hypertrophy, Highest mean aortic valve gradient is 31mmHg. Per echocardiogram 02/01/2024 Peak aortic valve gradient is 53mmHg. Per echocardiogram 02/01/2024 Calculated MICAELA by the continuity equation is 0.8cm2. is severe valvular aortic stenosis. 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 Rosenthal Obesity class one BMI 32.5 Lleft heart catheterization with TAVR protocol by Dr. Lackey Allergies: Coded Allergies: No Known Drug Allergies (Unverified Allergy, Unknown, 09/25/17) Home Meds Reported Medications Alendronate Sodium (Alendronate Sodium) 70 Mg Tablet, 70 MG PO QWEEK, TAB 12/05/24 Clopidogrel Bisulfate (Clopidogrel) 75 Mg Tablet, 75 MG PO DAILY, TAB 12/05/24 Isosorbide Mononitrate (Isosorbide Mononitrate ER) 30 Mg Tab.er.24h, 30 MG PO DAILY, TAB 12/05/24 Benazepril HCl (Benazepril HCl) 40 Mg Tablet, 40 MG PO AM, TAB 06/01/24 Apixaban (Eliquis) 5 Mg Tablet, 5 MG PO BID, TAB RESUME ELIQUIS ON TUESDAY PM 04/27/24 Levothyroxine Sodium (Levothyroxine) 88 Mcg Capsule, 88 MCG PO DAILY, CAP 05/14/21 Atorvastatin Calcium (LIPITOR) 20 Mg Tab, 20 MG PO HS, TAB 09/25/17 Past Medical History Past Medical History: A-Fib, CAD, High Cholesterol, Hypertension, Hypothyroid Medical History Other: THYROID Past Surgical History: Other Surgical History Other: BACK, KNEE, Cardiac STENTS LAD Social History Social History: Negative, Lives with family ROS Dictation CONSTITUTIONAL: Negative except for HPI HEAD/FACE: Negative except for HPI EENT: Negative except for HPI RESPIRATORY: Negative except for HPI GASTROINTESTINAL/ABDOMINAL: Negative except for HPI GENITOURINARY: Negative except for HPI MUSCULOSKELETAL: Negative except for HPI INTEGUMENTARY: Negative except for HPI NEUROLOGICAL/PSYCH: Negative except for HPI HEMATOLOGIC/LYMPHATIC: Negative except for HPI All Systems Negative, Except as noted above. 13 point review of systems assessed and all negative except for above. Physical Exam Physical Exam Dictation Vital Signs reviewed General Appearance: Alert, oriented x 3, no acute distress, well developed, nourished. Head and Face: non-traumatic. Eyes: PERRL, pink conjunctivas, eyelid no trauma, anterior chamber with arcus senilis. Ears: Pinnas intact and no signs of trauma or erythema ear canals clear and no discharge TM no erythema Nose: No discharge, no bleeding. Oropharynx: Mouth normal, tongue pink, pharynx clear,no erythema, tonsils no exudates, no abscesses noted, mucous membrane moist Neck: Supple, non-tender, no thyromegaly, no masses, no JVD, no bruits Breast:Deferred Chest:No tenderness, no crepitus, no paradoxical movement, no retractions Lungs:Clear, well-ventilated, symmetric, no rales, no wheezing, no rhonchi, no stridor, good breath sounds bilaterally Heart: Regular rate, regular rhythm, no murmur, no gallops Vascular: no peripheral edema, Abdomen: Soft, positive bowel sounds, nondistended, no guarding, nontender, no rebound, no masses no hepatomegaly, no splenomegaly, no Harden's sign, no hernias. Rectal: Deferred Genital: Deferred Neurological: Normal speech, motor function intact, sensory function intact Musculoskeletal: Neck nontender, full range of motion, back nontender, full range of motion, Extremities: nontender, full range of motion Skin: Color pink, dry, no turgor, no rash, no lacerations, no abrasions, no contusions. Lymphatic: Deferred Results Laboratory and Microbiology Lab and Micro Result Laboratory Tests Test 09/01/25 02:51 White Blood Count 5.0 K/uL (4.8-10.8) Red Blood Count 4.42 MIL/uL (4.00-5.50) Hemoglobin 13.9 g/dL (12.0-16.0) Hematocrit 42.9 % (36-48) Mean Corpuscular Volume 97.1 fL (79-99) Mean Corpuscular Hemoglobin 31.4 pg (27.0-33.0) Mean Corpuscular Hemoglobin Concent 32.4 g/dL (32.0-36.0) Red Cell Distribution Width 13.5 % (11.0-15.5) Platelet Count 196 K/uL (130-400) Mean Platelet Volume 10.7 fL (7.5-10.5) H Immature Granulocyte % (Auto) 0.4 % (0-1) Neutrophils (%) (Auto) 58.7 % (40.0-77.0) Lymphocytes (%) (Auto) 27.6 % (21.0-51.0) Monocytes (%) (Auto) 11.3 % (3.0-13.0) Eosinophils (%) (Auto) 1.6 % (0.0-8.0) Basophils (%) (Auto) 0.4 % (0.0-5.0) Neutrophils # (Auto) 3.0 K/uL (1.8-7.7) Lymphocytes # (Auto) 1.4 K/uL (1.0-4.8) Monocytes # (Auto) 0.6 K/uL (0.1-1.0) Eosinophils # (Auto) 0.08 K/uL (0.00-0.70) Basophils # (Auto) 0.02 K/uL (0.00-0.20) Absolute Immature Granulocyte (auto 0.02 K/uL (0-1) Nucleated Red Blood Cells 0.0 % (0.0-0.19) Prothrombin Time 12.1 SEC (9.6-11.6) H Prothromb Time International Ratio 1.16 (0.85-1.15) H Activated Partial Thromboplast Time 32.9 SEC (26.3-35.5) Sodium Level 140 mmol/L (136-145) Potassium Level 3.8 mmol/L (3.5-5.1) Chloride Level 107 mmol/L (101-111) Carbon Dioxide Level 25 mmol/L (21-32) Blood Urea Nitrogen 24 mg/dL (7-18) H Creatinine 0.9 mg/dL (0.5-1.0) Glomerular Filtration Rate Calc 62 mL/min (>90) Random Glucose 102 mg/dL (70-105) Total Calcium 8.5 mg/dL (8.5-10.1) Magnesium Level 1.80 mg/dL (1.80-2.40) Total Bilirubin 0.3 mg/dL (0.2-1.0) Aspartate Amino Transf (AST/SGOT) 18 U/L (10-37) Alanine Aminotransferase (ALT/SGPT) 9 U/L (12-78) L Alkaline Phosphatase 59 U/L (50-136) Total Creatine Kinase 41 U/L (21-232) # Troponin I High Sensitivity 10 ng/L (4-50) B-Type Natriuretic Peptide 87 pg/mL (0-100) Total Protein 6.0 g/dL (6.0-8.3) Albumin 2.8 g/dL (3.5-5.0) L Lipase 52 U/L (16-77) EKG/XRAY/US/CT/MRI EKG Comment Sinus rhythm 61 heart rate, OH 142, QT 458. MDM Patient with multiple comorbidities as per HPI please see. Patient was brought to the ER due to chest pain around 1:00 a.m.(1 hour prior to presentation to the emergency department.) States that she took 3 doses of nitroglycerin sublingually. Previous EKGs seen by EMS reports atrial fibrillation with rapid ventricular re sponse 140 On presentation the patient was chest pain-free. EKG sent by EMS shows atrial fibrillation, here EKG was sinus rhythm at 61 Chest pain Atrial fibrillation Chest pain workup including laboratory, chest x-ray and EKG ordered. EKG was sinus rhythm 61 Troponin negative Patient is hemodynamically stable. But due to her extensive medical history, heart comorbidities patient he will be admitted to medical service for further cardiac workup. Case discussed with the patient at bedside. ED Course Orders Procedure Category Date Status Time 12 Lead Ekg Tracing- EKG 09/01/25 Logged Technical 02:30 Cbc With Differential LAB 09/01/25 Complete 02:30 B-Type Natriuretic LAB 09/01/25 Complete Peptide 02:30 Creatine Kinase, Total LAB 09/01/25 Complete 02:30 Magnesium LAB 09/01/25 Complete 02:30 Comprehensive LAB 09/01/25 Complete Metabolic Panel 02:30 Lipase LAB 09/01/25 Complete 02:30 Pt And Ptt LAB 09/01/25 Complete 02:30 Troponin I High LAB 09/01/25 Complete Sensitivity 02:30 Chest 1vw RAD 09/01/25 Taken 02:30 Vital Signs Date Time Temp Pulse Resp B/P (MAP) Pulse Ox O2 Delivery O2 Flow Rate FiO2 09/01/25 02:53 98.1 60 20 98/60 100 Room Air* 0 21 09/01/25 02:23 97.9 68 16 107/75 96 Room Air 0 DX & DISP Disposition: Inpatient Decision to Admit Date: Sep 01, 2025 Decision to Admit Time: 04:17 Departure Impression: Primary Impression: Chest pain Additional Impression: Atrial fibrillation Condition: Stable Referrals: YONG HAMMOND MD (PCP) Patient was accepted for admission for further observation and cardiac workup if necessary by hospitalist. Case discussed with the nurse practitioner from [facility] hospitalist team. BHAVANA HAMMOND Sep 01, 2025 02:43 LATOYA SEALS MD Sep 01, 2025 02:46
[2025-09-01 03:05] LABS: IMMATURE GRANULOCYTE ABSOLUTE 0.02 K/uL (0-1); NUCLEATED RED BLOOD CELLS 0.0 % (0.0-0.19); PLATELET COUNT (AUTO) 196 K/uL (130-400); RED BLOOD CELL COUNT(AUTO) 4.42 MIL/uL (4.00-5.50); RED CELL DISTRIBUTION WIDTH 13.5 % (11.0-15.5); WHITE BLOOD COUNT (AUTO) 5.0 K/uL (4.8-10.8)
[2025-09-01 03:18] LABS: CREATININE 0.9 mg/dL (0.5-1.0); GLOMERULAR FILTR. RATE CALC 62.0 mL/min (>90); GLUCOSE,RANDOM 102.0 mg/dL (70-105); SODIUM SERUM 140.0 mmol/L (136-145); UREA NITROGEN, BLOOD 24.0 mg/dL (7-18)
[2025-09-01 03:22] LABS: ASPARTATE AMINOTRANSFERASE 18.0 U/L (10-37); CREATINE KINASE, TOTAL 41.0 U/L (21-232); TOTAL PROTEIN, SERUM 6.0 g/dL (6.0-8.3)
[2025-09-01 03:44] LABS: INR 1.16 (0.85-1.15)
[2025-09-01] MEDS ORDERED: LACTULOSE 20 GM/30 ML UDCUP PO PRN (04:30)
--- NOTE | 2025-09-01 04:37 | NUR ---
ATTEMPT TO GIVE REPORT AT THIS TIME. NOT SUCCESSFUL.
[2025-09-01] MEDS: ASPIRIN 81 MG EC TAB PO ONE (04:44)
--- NOTE | 2025-09-01 04:50 | NUR ---
REPORT GIVEN TO ELLIOT OSCAR AT THIS TIME
--- NOTE | 2025-09-01 05:06 | HMCIMG ---
EXAM: CR Chest, 1 view CLINICAL HISTORY: Chest pain. COMPARISON: 07/19/2025. FINDINGS: The lungs show no infiltrates or other acute findings. No pleural effusion or pneumothorax. The cardiomediastinal silhouette is within normal limits. No acute osseous abnormality. Mild osteopenia. Degenerative osseous changes. IMPRESSION: No acute cardiopulmonary process is evident. Compared to the prior study, there is no significant interval change. /[place]
[2025-09-01 05:10] VITALS: BP 140/80; PULSE 60; RESP 20; TEMP 98; O2SAT 99
[2025-09-01] MEDS ORDERED: BENA-8 PO (05:51)
--- NOTE | 2025-09-01 07:38 | EKG ---
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
[2025-09-01 08:00] VITALS: BP 147/84; PULSE 57; RESP 20; TEMP 97.5; O2SAT 96
[2025-09-01 12:00] VITALS: BP 135/84; PULSE 63; RESP 20; TEMP 97.6
--- NOTE | 2025-09-01 13:44 | HP ---
[facility] HISTORY & PHYSICAL Date Patient Seen: Sep 01, 2025 Time of Visit: 13:43 Supervising Physician: Dr. Fabricio Stevenson Primary Care Physician: Dr. Campos Sterling Outpatient Specialists: Dr. Chester Lackey ( cardiology, [facility]) Inpatient Consults: Dr. Chester Lackey ( cardiology, [facility]) PROBLEM LIST: Atrial fibrillation with RVR CHRONIC PROBLEM LIST: Orthostatic hypotension Coronary artery disease s/p angioplasty and stent placementt to mid distal left anterior descending artery with placement of a 2.75 mm x 30 mm joseluis [place] stent deployed to 2.7 by mm and angioplasty and stent placement to proximal mid LAD with placement of a 3 mm x 18 mm joseluis [place] stent deployed to 3.10 mm 06/04/[address] 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 Rosenthal Hyperlipidemia Hypertension Osteoarthritis Depression Orthostatic hypotension HPI: Tayler Barbosa 85-year-old lady patient of PCP, Dr. Campos Sterling, health history: Hyperlipidemia, hypertension, osteoporosis, osteoarthritis, depression, atrial fibrillation, on anticoagulation therapy Eliquis5 mg p.o. b.i.d., coronary artery disease s/p angioplasty and stent placement by Dr. alina Lackey 06/04/2024, left heart catheterization and TAVR procedure by Dr. Lackey, and catheter ablation for atrial flutter on 06/01/[address] Rosenthal. Patient presents to the emergency department early in the morning on 09/01/2024 with chest pain. Patient reports the onset a few weeks ago, presented to the emergency department at another hospital found, clinically worked up and diagnosed with a hiatal hernia. Patient reports same exact symptoms this m orning accept when EMS was notified by patient and family patient was found to be in AFib with RVR rate 130, upon presentation in the emergency room rate was normal sinus at 61. Patient denies chest pain, shortness of the breath, fever, chills, nauseousness, recent ill person contact, drinking caffeinated beverages, prior to this episode. EKG: Rhythm normal sinus. 61 beats per minute no ST segment elevation or depression observed. Laboratory results,: WBC 5.0, hemoglobin 13.9, hematocrit 42.9%, platelets 196, BNP 8. Coagulation studies: PT 12.1, INR 1.16, and APPT 32.9 Vital signs: Temperature 97.9, pulse 68, respiration 16, blood pressure 107/75, oxygen saturation 96% on room air FiO2, 21. Chest x-ray one view results no pleural effusion or pneumothorax compared to the prior study there is no significant interval change noticed. Echocardiogram 02/01/2024 LVEF 60-65%, mild to moderate concentric left ventricle hypertrophy. Highest mean aortic valve gradient is 31 mmHg. There is severe valvular aortic stenosis The patient was seen and examined as well as assessed by myself in her room, 319. At the time the patient is in no acute distress awake alert and oriented this chest pain is not roughly couple. Nor does the chest pain occurred after ambulation by the patient. Troponins has been unremarkable. Patient reports being current with her medication. PAST MEDICAL HX: see above PAST SURGICAL HX: Back surgery Knee surgery Left heart catheterization with TAVR procedure by Dr. Tae Lackey CAD s/p Angioplasty and stent placement by Dr. Chester Lackey on 06/04/2024 Catheter ablation for atrial flutter on 06/01/[address] Rosenthal SOCIAL HISTORY: The patient denies smoking tobacco products and cigarettes, denies usage of recreational drugs, and denies drinking alcohol. Coded Allergies: No Known Drug Allergies (Unverified Allergy, Unknown, 09/25/17) REVIEW OF SYSTEMS: 12 point ROS reviewed with patient. Pertinent positives mentioned above. Otherwise negative. PHYSICAL EXAM: GENERAL: alert, weak, awake oriented x 3 HEENT: EOMI, Sclera non icteric, moist mucosa NECK: Supple, no JVD, trachea midline LUNGS: Clear breath sounds bilaterally. No wheezes HEART: Regular rate and rhythm. Normal S1 and S2, without murmurs ABD: Abdomen soft, nontender. Bowel sounds present EXT: No clubbing cyanosis or edema NEURO: Alert and oriented to person, follows commands Vital Signs (last 8hr) Date Time Temp Pulse Resp B/P (MAP) Pulse Ox O2 Delivery O2 Flow Rate FiO2 09/01/25 08:00 97.5 57 20 147/84 96 Room Air LABS: Hematology Labs: Test 09/01/25 02:51 Range/Units White Blood Count 5.0 4.8-10.8 K/uL Red Blood Count 4.42 4.00-5.50 MIL/uL Hemoglobin 13.9 12.0-16.0 g/dL Hematocrit 42.9 36-48 % Mean Corpuscular Volume 97.1 79-99 fL Mean Corpuscular Hemoglobin 31.4 27.0-33.0 pg Mean Corpuscular Hemoglobin Concent 32.4 32.0-36.0 g/dL Red Cell Distribution Width 13.5 11.0-15.5 % Platelet Count 196 130-400 K/uL Mean Platelet Volume 10.7 H 7.5-10.5 fL Immature Granulocyte % (Auto) 0.4 0-1 % Neutrophils (%) (Auto) 58.7 40.0-77.0 % Lymphocytes (%) (Auto) 27.6 21.0-51.0 % Monocytes (%) (Auto) 11.3 3.0-13.0 % Eosinophils (%) (Auto) 1.6 0.0-8.0 % Basophils (%) (Auto) 0.4 0.0-5.0 % Neutrophils # (Auto) 3.0 1.8-7.7 K/uL Lymphocytes # (Auto) 1.4 1.0-4.8 K/uL Monocytes # (Auto) 0.6 0.1-1.0 K/uL Eosinophils # (Auto) 0.08 0.00-0.70 K/uL Basophils # (Auto) 0.02 0.00-0.20 K/uL Absolute Immature Granulocyte (auto 0.02 0-1 K/uL Nucleated Red Blood Cells 0.0 0.0-0.19 % Chemistry Labs: Test 09/01/25 10:44 09/01/25 07:29 09/01/25 02:51 Range/Units Whole Blood Glucose 123 H 70-110 MG/DL Troponin I High Sensitivity 14 4-50 ng/L Sodium Level 140 136-145 mmol/L Potassium Level 3.8 3.5-5.1 mmol/L Chloride Level 107 101-111 mmol/L Carbon Dioxide Level 25 21-32 mmol/L Blood Urea Nitrogen 24 H 7-18 mg/dL Creatinine 0.9 0.5-1.0 mg/dL Glomerular Filtration Rate Calc 62 >90 mL/min Random Glucose 102 70-105 mg/dL Total Calcium 8.5 8.5-10.1 mg/dL Magnesium Level 1.80 1.80-2.40 mg/dL Total Bilirubin 0.3 0.2-1.0 mg/dL Aspartate Amino Transf (AST/SGOT) 18 10-37 U/L Alanine Aminotransferase (ALT/SGPT) 9 L 12-78 U/L Alkaline Phosphatase 59 50-136 U/L Total Creatine Kinase 41 # 21-232 U/L B-Type Natriuretic Peptide 87 0-100 pg/mL Total Protein 6.0 6.0-8.3 g/dL Albumin 2.8 L 3.5-5.0 g/dL Lipase 52 16-77 U/L Coagulation Labs: Test 09/01/25 02:51 Range/Units Prothrombin Time 12.1 H 9.6-11.6 SEC Prothromb Time International Ratio 1.16 H 0.85-1.15 Activated Partial Thromboplast Time 32.9 26.3-35.5 SEC DIAGNOSTICS / RADIOLOGY RESULTS: REASON: chest pain ORDERING PHYSICIAN: BHAVANA STERLING PAC PROCEDURE: CXR1VW - CHEST 1VW EXAM: CR Chest, 1 view CLINICAL HISTORY: Chest pain. COMPARISON: 07/19/2025. FINDINGS: The lungs show no infiltrates or other acute findings. No pleural effusion or pneumothorax. The cardiomediastinal silhouette is within normal limits. No acute osseous abnormality. Mild osteopenia. Degenerative osseous changes. IMPRESSION: No acute cardiopulmonary process is evident. Compared to the prior study, there is no significant interval change. /[place] DICTATED BY: RAFAEL BARRAZA Jr., MD DATE: 09/01/25604 ELECTRONICALLY SIGNED BY: RAFAEL BARRAZA Jr., MD DATE: 09/01/25604 PLAN Continuous telemetry monitoring. Med surge Cardiac diet. Reviewed and reconciled patient's home medications. Troponins series of 3 Consult physician rounding from [facility] Further orders per course of stay A.m. labs NEURO: Minimize central acting medications as possible. Maintain fall precautions, adequate lighting during the day PULMONARY: Supplemental 02 as needed. Maintain aspiration precautions at all times CARDIOVASCULAR: Follow hemodynamics. Vital signs per facility protocol GI & NUTRITION: Continue with nutritional support. Continue stool softeners and laxatives as needed. KIDNEYS & ELECTROLYTES: Strict monitoring of intake, output and overall fluid balance. Avoid nephrotoxic medications to the extent possible. Medications to be dosed according to renal function. Monitor electrolytes and replace as needed ENDOCRINE: Maintain blood glucose between 100-180 at all times. Hypoglycemia protocol in place INFECTIOUS DISEASE: Trend temperature, WBC and procalcitonin level Follow cultures, deescalate antibiotics as soon as possible. Panculture if new onset fever ONCOLOGY/HEMATOLOGY/COAGULATION: Monitor for s/s of bleeding Monitor hemoglobin, coagulation studies as needed SKIN: Pressure ulcer prevention per facility protocol Specialty mattress ORTHO/REHAB: Continue PT/OT Prophylaxis: Continue GI and DVT prophylaxis Code Status: Full Resuscitation Disposition: TBD Other: Total patient care time exceeds 35 minutes excluding all procedures. JULIAN CARNEY AGACNP Sep 01, 2025 13:43
[2025-09-01 16:00] VITALS: BP 129/79; PULSE 60; RESP 20; TEMP 97.7
--- NOTE | 2025-09-01 17:44 | EKG ---
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
--- NOTE | 2025-09-01 19:00 | NUR ---
DCP: INITIAL ASSESSMENT Patient lives with daughter, Loree Barbosa. She has no home health but does have PHC with [facility] 29 hours a week. Patient has cane, rollator, shower chair, and BPM at home. She needs help with ADLs and does not drive. Family assists with transportation. PCP is Dr. Campos Sterling/ Pharmacy is [facility] located in [place]. Patient voiced no safety concerns regarding returning home and states she has no difficulty with housing or buying food. DCP is home.
--- NOTE | 2025-09-01 19:14 | NUR ---
NURSING NOTE SPOKE TO DR ALLISON ABOUT CONSULT. DR ALLISON STATED HE DOES NOT DO HIATEL HERNIA. PRIMARY TEAM MADE AWARE.
[2025-09-01 20:00] VITALS: BP 124/77; PULSE 69; RESP 18; TEMP 98.2
[2025-09-02] VITALS (8 sets, daily range): BP systolic 115–143; BP diastolic 67–92; PULSE 57–72; RESP 16–18; TEMP 97.6–98.2; O2SAT 92–96
[2025-09-02 05:02] LABS: IMMATURE GRANULOCYTE ABSOLUTE 0.01 K/uL (0-1); NUCLEATED RED BLOOD CELLS 0.0 % (0.0-0.19); PLATELET COUNT (AUTO) 180 K/uL (130-400); RED BLOOD CELL COUNT(AUTO) 4.59 MIL/uL (4.00-5.50); RED CELL DISTRIBUTION WIDTH 13.6 % (11.0-15.5); WHITE BLOOD COUNT (AUTO) 5.2 K/uL (4.8-10.8)
[2025-09-02 05:15] LABS: PHOSPHORUS 3.7 mg/dL (2.5-4.9)
[2025-09-02] MEDS: ASPIRIN 81 MG EC TAB PO SCH (08:15)
[2025-09-02 10:02] LABS: CREATININE 0.7 mg/dL (0.5-1.0); GLOMERULAR FILTR. RATE CALC 84.0 mL/min (>90); GLUCOSE,RANDOM 121.0 mg/dL (70-105); SODIUM SERUM 143.0 mmol/L (136-145); UREA NITROGEN, BLOOD 20.0 mg/dL (7-18)
[2025-09-02 10:06] LABS: ASPARTATE AMINOTRANSFERASE 17.0 U/L (10-37); TOTAL PROTEIN, SERUM 5.7 g/dL (6.0-8.3)
--- NOTE | 2025-09-02 16:17 | CONS ---
[facility] CARDIOLOGY CONSULTATION REPORT Cardiology consultation note dictated for Chetna Pablo MD Primary detective bureau chief: Chester Lackey MD Date Patient Seen: Sep 02, 2025 Time of Visit: 15:57 Requesting Physician: JAVIER James Reason for Consultation: Chest pain, palpitations History of Present Illness: This is an 85-year-old female with a past medical history of hypertension, hyperlipidemia, hypothyroidism, obesity, osteoporosis, osteoarthritis, depression, venous insufficiency, orthostatic hypotension, paroxysmal atrial fibrillation on chronic anticoagulation with Eliquis, s/p CVI counterclockwise type I atrial flutter ablation by Dr. Rosenthal on 05/03/2024, CAD s/p LHC on 06/04/2024 revealed mild , 75% and 70% stenosis involving proximal mid LAD and distal LAD, status post 3 mm x 18 mm [place] stent deployed to 3.10 mm and a 2.75 x 30 mm Petros frontier stent deployed to 2.7 mm, attempts to address the subtotal D1 were unsuccessful, 2D Echocardiogram on 03/19/2025 with an LVEF of 60- 65%, grade I diastolic dysfunction, and severe aortic stenosis with AV pk of 91mmHg and AV mean of 57mmHg, and s/p Medtronic [id number] loop recorder implanted by Dr. Rosenthal on 12/07/2024 who presented to the ED with complaints of chest pain. Cardiology has been consulted for chest pain. The patient states on Tuesday morning at approximately 1:00 a.m., she was woken up by nonradiating, lower sternal/epigastric area discomfort. She described the discomfort as a stabbing sensation with a 9/10 intensity. Accompanying symptom included diaphoresis. There was no aggravating factors. She did take three sublingual nitroglycerin tablets 5 minutes apart which did decrease the pain intensity. Total chest discomfort lasted approximately 1 hour in duration. Cardiac enzymes have been negative x4. EKG on admission demonstrated normal sinus rhythm with a heart rate of 61bpm with no acute ischemia noted. Repeat EKG demonstrated normal sinus rhythm with a heart rate of 72bpm with nonspecific T-wave inversions in V4-5. The patient has since been chest pain-free and has even tolerated showering today without any symptoms. Past Medical History: As per HPI and summarized below Past Surgical History: right hip ORIF 2017 left total knee replacement 2018 hysterectomy nasal polyp removal eye surgeries Family History: The patient's mother of lung cancer. Social History: The patient lives with family. Habits: Denies smoking. Denies alcohol consumption. Denies illicit drug use Home Meds: Benazepril 20 mg daily Atorvastatin 20 mg q.h.s. Clopidogrel 75 mg daily Eliquis 5 mg b.i.d. Levothyroxine 88mcg daily Alendronate 70 mg weekly Current Meds: Medications Dose Ordered Sig/Linda Start Time Stop Time Status Last Admin Acetaminophen 650 mg Q6H PRN 09/01/25 04:30 10/01/25 04:29 Acetaminophen 650 mg Q6H PRN 09/01/25 04:30 10/01/25 04:29 Lactulose 20 gm Q6H PRN 09/01/25 04:30 10/01/25 04:29 Docusate Sodium 100 mg BID PRN 09/01/25 04:30 10/01/25 04:29 Ondansetron HCl 4 mg Q6H PRN 09/01/25 04:30 10/01/25 04:29 Labetalol HCl 10 mg Q2H PRN 09/01/25 04:30 10/01/25 04:29 Insulin Human Regular INSULIN SLIDING SCAL... ACHS 09/01/25 07:30 10/01/25 07:29 Aspirin 81 mg DAILY 09/02/25 09:00 10/02/25 08:59 09/02/25 08:15 Atorvastatin Calcium 40 mg HS 09/01/25 21:00 10/01/25 20:59 09/01/25 21:44 Apixaban 5 mg BID 09/01/25 09:00 10/01/25 08:59 09/02/25 08:15 Review of Systems: CONST: No fever, fatigue, or weight changes. EYES: No recent vision problems. ENT: No congestion, ear pain, or sore throat. C/V: No chest pain, palpitations, or edema. RESP: No cough, congestion, wheezing or shortness of breath. GI: No abdominal pain, nausea, vomiting, constipation, or diarrhea. : No incontinence or dysuria. SKIN: No rash. NEURO: No headache, focal numbness or weakness, dizziness, or seizures. PSYCH: No depression or anxiety. HEME: No abnormal bruising or bleeding. LYMPH: No swollen glands. Physical Examination: GENERAL: No acute distress. HEAD: Normal with no signs of head trauma. EYES: Conjunctiva and sclera normal. ENT: Hearing grossly intact, normal oropharynx. NECK: Supple without JVD. Normal carotid upstrokes without bruits. LUNGS: Clear breath sounds bilaterally. No wheezes, or rhonchi. HEART: Normal rate and rhythm. Normal S1 and S2 without gallop or rub. 2/6 RADHA at the RUSB radiate to the carotids. VASC: Peripheral pulses +2 bilaterally. ABD: Bowel sounds normal, soft, nontender, no masses, no organomegaly. No audible bruits. : Not examined LYMPH: No lymphadenopathy noted. EXT: No clubbing, cyanosis or edema. SKIN: No rashes or lesions noted. NEURO: Awake, alert, and oriented x3. No focal sensory or strength deficits noted. Vital Signs (last 8hr) Date Time Temp Pulse Resp B/P (MAP) Pulse Ox O2 Delivery O2 Flow Rate FiO2 09/02/25 12:00 97.9 72 18 126/88 96 Room Air 09/02/25 08:00 98.2 67 18 129/67 91 Room Air 09/02/25 08:00 92 Room Air* 0 21 Laboratory: Hematology Labs: Test 09/02/25 04:55 Range/Units White Blood Count 5.2 4.8-10.8 K/uL Red Blood Count 4.59 4.00-5.50 MIL/uL Hemoglobin 14.4 12.0-16.0 g/dL Hematocrit 43.8 36-48 % Mean Corpuscular Volume 95.4 79-99 fL Mean Corpuscular Hemoglobin 31.4 27.0-33.0 pg Mean Corpuscular Hemoglobin Concent 32.9 32.0-36.0 g/dL Red Cell Distribution Width 13.6 11.0-15.5 % Platelet Count 180 130-400 K/uL Mean Platelet Volume 10.5 7.5-10.5 fL Immature Granulocyte % (Auto) 0.2 0-1 % Neutrophils (%) (Auto) 58.5 40.0-77.0 % Lymphocytes (%) (Auto) 26.4 21.0-51.0 % Monocytes (%) (Auto) 11.8 3.0-13.0 % Eosinophils (%) (Auto) 2.5 0.0-8.0 % Basophils (%) (Auto) 0.6 0.0-5.0 % Neutrophils # (Auto) 3.0 1.8-7.7 K/uL Lymphocytes # (Auto) 1.4 1.0-4.8 K/uL Monocytes # (Auto) 0.6 0.1-1.0 K/uL Eosinophils # (Auto) 0.13 0.00-0.70 K/uL Basophils # (Auto) 0.03 0.00-0.20 K/uL Absolute Immature Granulocyte (auto 0.01 0-1 K/uL Nucleated Red Blood Cells 0.0 0.0-0.19 % Chemistry Labs: Test 09/02/25 12:13 09/02/25 09:31 09/02/25 04:55 09/01/25 02:51 Range/Units Whole Blood Glucose 132 H 70-110 MG/DL Sodium Level 143 136-145 mmol/L Potassium Level 3.8 3.5-5.1 mmol/L Chloride Level 109 101-111 mmol/L Carbon Dioxide Level 25 21-32 mmol/L Blood Urea Nitrogen 20 H 7-18 mg/dL Creatinine 0.7 0.5-1.0 mg/dL Glomerular Filtration Rate Calc 84 >90 mL/min Random Glucose 121 H 70-105 mg/dL Total Calcium 8.3 L 8.5-10.1 mg/dL Total Bilirubin 0.5 0.2-1.0 mg/dL Aspartate Amino Transf (AST/SGOT) 17 10-37 U/L Alanine Aminotransferase (ALT/SGPT) 13 12-78 U/L Alkaline Phosphatase 61 50-136 U/L Troponin I High Sensitivity 9 4-50 ng/L Total Protein 5.7 L 6.0-8.3 g/dL Albumin 2.9 L 3.5-5.0 g/dL Phosphorus Level 3.7 2.5-4.9 mg/dL Magnesium Level 1.90 1.80-2.40 mg/dL Total Creatine Kinase 41 # 21-232 U/L B-Type Natriuretic Peptide 87 0-100 pg/mL Lipase 52 16-77 U/L Coagulation Labs: Test 09/01/25 02:51 Range/Units Prothrombin Time 12.1 H 9.6-11.6 SEC Prothromb Time International Ratio 1.16 H 0.85-1.15 Activated Partial Thromboplast Time 32.9 26.3-35.5 SEC Diagnostics / Radiology: Impression and Plan: Chest pain Paroxysmal atrial fibrillation on chronic anticoagulation with Eliquis S/p CVI counterclockwise type I atrial flutter ablation by Dr. Rosenthal on 05/03/2024 CAD s/p LHC on 06/04/2024 revealed mild , 75% and 70% stenosis involving proximal mid LAD and distal LAD, s/p 3x 18mm [place] stent deployed to 3.10 mm and a 2.75x 30mm [place] frontier stent deployed to 2.7mm, attempts to address the subtotal D1 were unsuccessful 2D Echocardiogram on 03/19/2025 with an LVEF of 60-65%, grade I diastolic dysfunction, and severe aortic stenosis with AV pk of 91mmHg and AV mean of 57m mHg S/p Medtronic [id number] loop recorder implanted by Dr. Rosenthal on 12/07/2024 Hypertension Hyperlipidemia Hypothyroidism Venous insufficiency Orthostatic hypotension Normal carotid duplex on 07/2024 Chest pain Troponin negative x 4 -Discontinue Eliquis and transition to Lovenox 1mg/kg bid -Last dose of Eliquis the AM of 09/02 -Plan for a right and left heart catheterization on to assess the severity of aortic stenosis and progression of CAD FAITH MIR Sep 02, 2025 16:17
[2025-09-02] MEDS: ENOXAPARIN SODIUM 80 MG/0.8 ML SQ SCH (20:53)
--- NOTE | 2025-09-02 23:16 | PN ---
[facility] PROGRESS NOTE Date Patient Seen: Sep 02, 2025 Time of Visit: 23:16 Supervising Physician: Dr. Fabricio Stevenson Primary Care Physician: Dr. Campos Sterling Outpatient Specialists: Dr. Chester Lackey ( cardiology, [facility]) Inpatient Consults: Dr. Chester Lackey ( cardiology, [facility]) PROBLEM LIST: Atrial fibrillation with RVR CHRONIC PROBLEM LIST: Orthostatic hypotension Coronary artery disease s/p angioplasty and stent placementt to mid distal left anterior descending artery with placement of a 2.75 mm x 30 mm joseluis Beebe stent deployed to 2.7 by mm and angioplasty and stent placement to proximal mid LAD with placement of a 3 mm x 18 mm joseluis Beebe stent deployed to 3.10 mm 06/04/[address] 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 Rosenthal Hyperlipidemia Hypertension Osteoarthritis Depression Orthostatic hypotension INTERVAL HISTORY: Assessed, examined, seen the patient while resting Hughes's position in bed with no family members nor friends present, awake alert and oriented and in no acute distress accompanied by patient's bedside. Nursing staff reports no adverse events occurring overnight impacting the patient. Patient has an extensive cardiac health history reviewed patient's health history to ensure accuracy which was. Reviewed and discussed with patient laboratory results for today, vital signs, diagnostic tests results, and the plan which includes patient's cardiology practice, [facility] provider to assess patient with recommendations. Patient has a recent echo in April of this year, patient's rodriguez underlying is that she has severe aortic valve stenosis per the notes the patient may require a diagnostic left and right-sided heart catheterization. This topic has been approached already to the patient in the patient is not interested valve replacement surgery. Anticipate recommendations from Cardiology tomorrow. Patient is afebrile. Vital signs stable. Chest pain can not be replicated. Further orders per course of stay. A.m. labs ordered. REVIEW OF SYSTEMS: 12 point ROS reviewed with patient. Pertinent positives mentioned above. Otherwise negative. PHYSICAL EXAM: GENERAL: alert, weak, awake oriented x 3 HEENT: EOMI, Sclera non icteric, moist mucosa NECK: Supple, no JVD, trachea midline LUNGS: Clear breath sounds bilaterally. No wheezes HEART: Regular rate and rhythm. Normal S1 and S2, without murmurs ABD: Abdomen soft, nontender. Bowel sounds present EXT: No clubbing cyanosis or edema NEURO: Alert and oriented to person, follows commands Vital Signs (last 8hr) Date Time Temp Pulse Resp B/P (MAP) Pulse Ox O2 Delivery O2 Flow Rate FiO2 09/02/25 20:38 97.9 68 17 133/89 96 Room Air 09/02/25 16:00 98.1 67 18 140/80 95 Room Air LABS: Hematology Labs: Test 09/02/25 04:55 Range/Units White Blood Count 5.2 4.8-10.8 K/uL Red Blood Count 4.59 4.00-5.50 MIL/uL Hemoglobin 14.4 12.0-16.0 g/dL Hematocrit 43.8 36-48 % Mean Corpuscular Volume 95.4 79-99 fL Mean Corpuscular Hemoglobin 31.4 27.0-33.0 pg Mean Corpuscular Hemoglobin Concent 32.9 32.0-36.0 g/dL Red Cell Distribution Width 13.6 11.0-15.5 % Platelet Count 180 130-400 K/uL Mean Platelet Volume 10.5 7.5-10.5 fL Immature Granulocyte % (Auto) 0.2 0-1 % Neutrophils (%) (Auto) 58.5 40.0-77.0 % Lymphocytes (%) (Auto) 26.4 21.0-51.0 % Monocytes (%) (Auto) 11.8 3.0-13.0 % Eosinophils (%) (Auto) 2.5 0.0-8.0 % Basophils (%) (Auto) 0.6 0.0-5.0 % Neutrophils # (Auto) 3.0 1.8-7.7 K/uL Lymphocytes # (Auto) 1.4 1.0-4.8 K/uL Monocytes # (Auto) 0.6 0.1-1.0 K/uL Eosinophils # (Auto) 0.13 0.00-0.70 K/uL Basophils # (Auto) 0.03 0.00-0.20 K/uL Absolute Immature Granulocyte (auto 0.01 0-1 K/uL Nucleated Red Blood Cells 0.0 0.0-0.19 % Chemistry Labs: Test 09/02/25 20:00 09/02/25 09:31 09/02/25 04:55 09/01/25 02:51 Range/Units Whole Blood Glucose 134 H 70-110 MG/DL Sodium Level 143 136-145 mmol/L Potassium Level 3.8 3.5-5.1 mmol/L Chloride Level 109 101-111 mmol/L Carbon Dioxide Level 25 21-32 mmol/L Blood Urea Nitrogen 20 H 7-18 mg/dL Creatinine 0.7 0.5-1.0 mg/dL Glomerular Filtration Rate Calc 84 >90 mL/min Random Glucose 121 H 70-105 mg/dL Total Calcium 8.3 L 8.5-10.1 mg/dL Total Bilirubin 0.5 0.2-1.0 mg/dL Aspartate Amino Transf (AST/SGOT) 17 10-37 U/L Alanine Aminotransferase (ALT/SGPT) 13 12-78 U/L Alkaline Phosphatase 61 50-136 U/L Troponin I High Sensitivity 9 4-50 ng/L Total Protein 5.7 L 6.0-8.3 g/dL Albumin 2.9 L 3.5-5.0 g/dL Phosphorus Level 3.7 2.5-4.9 mg/dL Magnesium Level 1.90 1.80-2.40 mg/dL Total Creatine Kinase 41 # 21-232 U/L B-Type Natriuretic Peptide 87 0-100 pg/mL Lipase 52 16-77 U/L Coagulation Labs: Test 09/01/25 02:51 Range/Units Prothrombin Time 12.1 H 9.6-11.6 SEC Prothromb Time International Ratio 1.16 H 0.85-1.15 Activated Partial Thromboplast Time 32.9 26.3-35.5 SEC DIAGNOSTICS / RADIOLOGY RESULTS: [ ] PLAN Continuous telemetry monitoring. Med surge Cardiac diet. Reviewed and reconciled patient's home medications. Troponins series of 3 Consult physician rounding from [facility] Further orders per course of stay A.m. labs NEURO: Minimize central acting medications as possible. Maintain fall precautions, adequate lighting during the day PULMONARY: Supplemental 02 as needed. Maintain aspiration precautions at all times CARDIOVASCULAR: Follow hemodynamics. Vital signs per facility protocol GI & NUTRITION: Continue with nutritional support. Continue stool softeners and laxatives as needed. KIDNEYS & ELECTROLYTES: Strict monitoring of intake, output and overall fluid balance. Avoid nephrotoxic medications to the extent possible. Medications to be dosed according to renal function. Monitor electrolytes and replace as needed ENDOCRINE: Maintain blood glucose between 100-180 at all times. Hypoglycemia protocol in place INFECTIOUS DISEASE: Trend temperature, WBC and procalcitonin level Follow cultures, deescalate antibiotics as soon as possible. Panculture if new onset fever ONCOLOGY/HEMATOLOGY/COAGULATION: Monitor for s/s of bleeding Monitor hemoglobin, coagulation studies as needed SKIN: Pressure ulcer prevention per facility protocol Specialty mattress ORTHO/REHAB: Continue PT/OT Prophylaxis: Continue GI and DVT prophylaxis Code Status: Full Resuscitation Disposition: TBD Other: Total patient care time exceeds 35 minutes excluding all procedures. JULIAN CARNEY AGACNP Sep 02, 2025 23:16
[2025-09-03] VITALS: BP 123/71; PULSE 58; RESP 17; TEMP 98
[2025-09-03 04:00] VITALS: BP 129/88; PULSE 73; RESP 17; TEMP 98
[2025-09-03 06:53] LABS: NUCLEATED RED BLOOD CELLS 0.0 % (0.0-0.19); PLATELET COUNT (AUTO) 180.0 K/uL (130-400); RED BLOOD CELL COUNT(AUTO) 4.53 MIL/uL (4.00-5.50); RED CELL DISTRIBUTION WIDTH 13.5 % (11.0-15.5); WHITE BLOOD COUNT (AUTO) 4.8 K/uL (4.8-10.8)
[2025-09-03 07:48] VITALS: BP 144/79; PULSE 60; RESP 16; TEMP 97.7
--- NOTE | 2025-09-03 08:31 | PN ---
[facility] Cardiology Progress Note PROBLEM LIST: [ Chest pain Paroxysmal atrial fibrillation on chronic anticoagulation with Eliquis S/p CVI counterclockwise type I atrial flutter ablation by Dr. Rosenthal on 05/03/2024 CAD s/p LHC on 06/04/2024 revealed mild , 75% and 70% stenosis involving proximal mid LAD and distal LAD, s/p 3x 18mm [place] Stacy stent deployed to 3.10 mm and a 2.75x 30mm Petros frontier stent deployed to 2.7mm, attempts to address the subtotal D1 were unsuccessful 2D Echocardiogram on 03/19/2025 with an LVEF of 60-65%, grade I diastolic dysfunction, and severe aortic stenosis with AV pk of 91mmHg and AV mean of 57mmHg S/p Medtronic [id number] loop recorder implanted by Dr. Rosenthal on 12/07/2024 Hypertension Hyperlipidemia Hypothyroidism Venous insufficiency Orthostatic hypotension Normal carotid duplex on 07/2024 ] INTERVAL HISTORY: [ ] PHYSICAL EXAMINATION: Vital Signs (Last 48hrs) Date Time Temp Pulse Resp B/P (MAP) Pulse Ox O2 Delivery O2 Flow Rate FiO2 09/03/25 04:00 98.1 73 17 129/88 95 Room Air 09/03/25 00:00 98.1 58 17 123/71 94 Room Air 09/02/25 20:38 97.9 68 17 133/89 96 Room Air 09/02/25 19:56 96 Room Air* 0 09/02/25 16:00 98.1 67 18 140/80 95 Room Air 09/02/25 12:00 97.9 72 18 126/88 96 Room Air 09/02/25 08:00 98.2 67 18 129/67 91 Room Air 09/02/25 08:00 92 Room Air* 0 09/02/25 04:00 97.5 57 16 115/70 96 Room Air 09/02/25 02:17 93 Room Air* 0 09/02/25 00:00 98.2 68 16 143/92 97 Room Air 09/01/25 20:00 98.2 69 18 124/77 93 Room Air 09/01/25 16:00 97.7 60 20 129/79 95 Room Air 09/01/25 12:00 97.5 63 20 135/84 95 Room Air General: Resting comfortably, no acute distress. HEENT: Atraumatic. Hearing is intact. No facial asymmetry, nasal discharge, icterus or lid lag. Cardiovascular: Rhythm and rate regular. No murmur. No edema. Respiratory: Lungs clear to the bases. No retractions, wheezes or rhonchi. Gastrointestinal: Benign, soft, nontender, nondistended. Extremities: No amputations. Range of motion is grossly normal. Neurology/Psychiatry: No tremors. Speech is clear. Alert and oriented x 3. Cooperative and pleasant. LABORATORY DATA: [] RADIOLOGY: [] PLAN: [] CHARLENE NUNEZ PAC Sep 03, 2025 08:31
[2025-09-03] MEDS: LISINOPRIL 10 MG TABLET PO SCH (08:40)
[2025-09-03] MEDS ORDERED: NON-FORMULARY MEDICATION 1 EACH (Benazepril HCl 20 MG) PO SCH (09:00)
[2025-09-03 10:50] VITALS: BP 120/72; PULSE 98; RESP 18; TEMP 98.2
--- NOTE | 2025-09-03 13:05 | NUR ---
DISCHARGE DC'D IV. PT AWARE OF APPOINTMENT WITH [employer] ON 09/05/25 AT 0850 AND WITH PCP ON 09/09/25 AT 1015. PT DENIES PAIN AT THIS TIME. NO QUESTIONS. TEACHINGS GIVEN. PT ACKNOWLEDGED INFORMATION. PT WAITING FOR [facility].
--- NOTE | 2025-09-03 14:43 | DS ---
[facility] DISCHARGE SUMMARY Date Patient Seen: Sep 03, 2025 Time of Visit: 1212 Supervising Physician: Dr. Stevenson Primary Care Physician: Dr. Campos Sterling Outpatient Specialists: Dr. Chester Lackey ( cardiology, [facility]) Inpatient Consults: Dr. Chester Lackey ( cardiology, [facility]) PROBLEM LIST: Atrial fibrillation with RVR, resolved CHRONIC PROBLEM LIST: Orthostatic hypotension Coronary artery disease s/p angioplasty and stent placementt to mid distal left anterior descending artery with placement of a 2.75 mm x 30 mm joseluis [place] stent deployed to 2.7 by mm and angioplasty and stent placement to proximal mid LAD with placement of a 3 mm x 18 mm joseluis [place] stent deployed to 3.10 mm 06/04/[address] 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 Rosenthal Hyperlipidemia Hypertension Osteoarthritis Depression Orthostatic hypotension HOSPITAL COURSE: HPI (per admitting provider)Tayler Barbosa 85-year-old lady patient of PCP, Dr. Campos Sterling, health history: Hyperlipidemia, hypertension, osteoporosis, osteoarthritis, depression, atrial fibrillation, on anticoagulation therapy Eliquis5 mg p.o. b.i.d., coronary artery disease s/p angioplasty and stent placement by Dr. alina Lackey 06/04/2024, left heart catheterization and TAVR procedure by Dr. Lackey, and catheter ablation for atrial flutter on 06/01/[address] Rosenthal. Patient presents to the emergency department early in the morning on 09/01/2024 with chest pain. Patient reports the onset a few weeks ago, presented to the emergency department at another hospital found, clinically worked up and diagnosed with a hiatal hernia. Patient reports same exact symptoms this morning accept when EMS was notified by patient and family patient was found to be in AFib with RVR rate 130, upon presentation in the emergency room rate was normal sinus at 61. Patient denies chest pain, shortness of the breath, fever, chills, nauseousness, recent ill person contact, drinking caffeinated beverages, prior to this episode. EKG: Rhythm normal sinus. 61 beats per minute no ST segment elevation or depression observed. Laboratory results,: WBC 5.0, hemoglobin 13.9, hematocrit 42.9%, platelets 196, BNP 8. Coagulation studies: PT 12.1, INR 1.16, and APPT 32.9 Vital signs: Temperature 97.9, pulse 68, respiration 16, blood pressure 107/75, oxygen saturation 96% on room air FiO2, 21. Chest x-ray one view results no pleural effusion or pneumothorax compared to the prior study there is no significant interval change noticed. Echocardiogram 02/01/2024 LVEF 60-65%, mild to moderate concentric left ventricle hypertrophy. Highest mean aortic valve gradient is 31 mmHg. There is severe valvular aortic stenosis The patient was seen and examined as well as assessed by myself in her room, 319. At the time the patient is in no acute distress awake alert and oriented this chest pain is not roughly couple. Nor does the chest pain occurred after ambulation by the patient. Troponins has been unremarkable. Patient reports being current with her medication. Patient was seen and examined by bedside with no family present. Patient is awake alert able to answer simple questions appropriately. Denies any chest pain or shortness of breadth. Denies any nausea vomiting or abdominal pain. Has remained hemodynamically stable. Has remained in sinus rhythm. He is tolerating p.o. diet is having bowel movements. Was notified by patient's woodworking bench carpenter this a.m. that from a cardiology standpoint she is cleared for discharge and has an appointment scheduled for the of this month. Instructed patient will be getting discharged today and we will need to follow up with PCP within 3-5 days upon discharge, along with keeping her scheduled appointment with per cardiology's for this on the . Patient voices understanding agrees with plan has no questions at this time The patient was treated for the following problems: ACTIVE PROBLEM LIST FOR THE HOSPITALIZATION: CHRONIC PROBLEMS: continue previous management per PCP unless otherwise indicated [employer] FINDINGS/RECOMMENDATIONS: Cleared by cardiology for discharge patient has a scheduled appointment for September 05 2025 PROCEDURES: as mentioned above DISCHARGE MEDICATIONS: Pt hemodynamically stable and afebrile at time of discharge. PCP notified of patients admission, hospital course and discharge. Continued Medications: Alendronate Sodium (Alendronate Sodium) 70 Mg Tablet 70 MG PO QWEEK, TAB Apixaban (Eliquis) 5 Mg Tablet 5 MG PO BID, TAB RESUME ELIQUIS ON TUESDAY PM Atorvastatin Calcium (Lipitor) 20 Mg Tab 20 MG PO HS, TAB Benazepril HCl (Benazepril HCl) 20 Mg Tablet 20 MG PO DAILY, TAB Clopidogrel Bisulfate (Clopidogrel) 75 Mg Tablet 75 MG PO DAILY, TAB Levothyroxine Sodium (Levothyroxine) 88 Mcg Capsule 88 MCG PO DAILY, CAP PHYSICAL EXAM: GENERAL: alert, weak, awake oriented x 3 HEENT: EOMI, Sclera non icteric, moist mucosa NECK: Supple, no JVD, trachea midline LUNGS: Clear breath sounds bilaterally. No wheezes HEART: Regular rate and rhythm. Normal S1 and S2, without murmurs ABD: Abdomen soft, nontender. Bowel sounds present EXT: No clubbing cyanosis or edema NEURO: Alert and oriented to person, follows commands FOLLOW-UP: Follow-up with PCP in 2-3 days Follow up with Cardiology on 09/05/25 RECOMMENDATIONS: See Discharge Instructions This case was seen and discussed with my supervising physician. 35 minutes spent on discharge process, including evaluation of the patient, discussion with nursing staff, medication reconciliation and follow-up appointments CARIN MUELLER Sep 03, 2025 14:43
== END 2025-09-03 13:40 | disposition home or self-care (01) ==
LOC: EDH 02:22 → EDHIP 04:13 → 3CH 05:07
PROVIDERS: ADMIT Internal Medicine; ATTEND Internal Medicine
DX: I95.1 Orthostatic hypotension (principal); I25.10 Atherosclerotic heart disease of native coronary artery without angina pectoris; I10 Essential (primary) hypertension; K44.9 Diaphragmatic hernia without obstruction or gangrene; M19.90 Unspecified osteoarthritis, unspecified site; M81.0 Age-related osteoporosis without current pathological fracture; F32.A Depression, unspecified; E03.9 Hypothyroidism, unspecified; Z79.02 Long term (current) use of antithrombotics/antiplatelets; Z79.01 Long term (current) use of anticoagulants; Z79.82 Long term (current) use of aspirin; Z79.83 Long term (current) use of bisphosphonates; Z95.5 Presence of coronary angioplasty implant and graft; Z90.710 Acquired absence of both cervix and uterus
CPT/HCPCS: 99285; 82550; 83735 ×3; 84484 ×4; 80053 ×2; 83880; 83690; 85025 ×2; 85610; 85730; 82948 ×10; 36415 ×3; 71045; 93005 ×2; 96372 ×2; 84100; 85027; G0378 ×57; J1650 ×2